=== PATIENT | male | born 1955 | race Caucasian/White ===

== ENCOUNTER 2019-08-08 08:29 | Outpatient (CLI) | payer OTHER ==
--- NOTE | 2019-08-08 10:22 | MRI ---
MR the lumbar spine with and without contrast INDICATION: 63-year-old male with lumbar stenosis with low back pain and leg weakness COMPARISON: MR of the lumbar spine without contrast from [facility] dated April. TECHNIQUE: Multiplanar multisequence MR images were obtained of lumbar spine with and without IV cont rast. Contrast: 20 cc of MultiHance. FINDINGS: Bone marrow: There is mild Modic endplate degenerative changes at L4-5 which are new. Distal spinal cord and conus: Normal. Conus is seen to terminate at the L1-L2 level. Visualized retroperitoneum and paraspinal soft tissues: There is a 6 mm, T2 hyperintense, nonenhancin g lesion seen within the left mid kidney likely reflective of a small left renal cyst. This was present on a comparison CT the abdomen from [facility] dated January 08, 2012 Vertebral levels: L5-S1: There is minimal interval posterior lateral spinal fusion at L5-S1. Susceptibility artifacts f rom bilateral pedicle screws and interconnecting rods are now present. The grade 1 anterolisthesis of L5 on S1 is stable. There is a stable [id number] broad-based pseudobulge. The loss of disc s pace height in addition to the broad-based pseudobulge induces mild neural foraminal narrowing, right greater than left, which is stable. L4-5: There is a broad-based disc osteophyte complex with facet hypertrophy inducing moderate central canal narrowing with moderate to severe right and severe left neural foraminal narrowing. This has progressed from the prior exam. L3-4: There is a broad-based disc bulge with a superimposed, cephalad extending left paracentral disc extrusion. The extrusion measures 0.9 x 1.6 cm induces mild ventrolateral effacement of the thecal sac. There is moderate subarticular left lateral recess narrowing due to the extrusion with potential for impingement of the traversing left lateral nerve roots within the thecal sac. The broad-based disc osteophyte complex with facet hypertrophy induces mild to moderate bilateral neural foraminal na rrowing which is relatively stable to the prior exam. L2-3: There is a mild broad-based disc bulge but no appreciable central canal or neural foraminal cayetano rowing. L1-L2: There is a mild broad-based disc bulge but no appreciable central canal or neural foraminal na rrowing T12-L1: No appreciable central canal or neuroforaminal narrowing. Postcontrast series: No abnormal enhancement demonstrated. IMPRESSION: 1. Interval posterior lateral L5-S1 interbody fusion. 2. Interval development of moderate central canal narrowing at L4-5 with moderate to severe right and severe left neural foraminal narrowing. 3. New cephalad extending, left paracentral disc extrusion causing moderate left lateral recess narro wing with potential for impingement of the traversing left lateral nerve roots within the thecal sac. 4. Stable mild to moderate bilateral neural foraminal narrowing at L3-4.
[2019-08-08] MEDS ORDERED: Magnevist 469MG/ML 20 ML VIAL ONE (11:11)
== END 2019-08-08 08:30 | disposition home or self-care (01) ==
LOC: BICMRI 08:29
PROVIDERS: ATTEND Neurological Surgery
DX: M48.061 Spinal stenosis, lumbar region without neurogenic claudication (principal); M51.26 Other intervertebral disc displacement, lumbar region; Z98.1 Arthrodesis status
CPT/HCPCS: 72158; 82565

== ENCOUNTER 2021-03-29 12:55 | Outpatient (CLI) | payer OTHER | END 2021-03-29 12:56 | disposition home or self-care (01) | LOC: BICMRI 12:55 | PROVIDERS: ATTEND Neurological Surgery | DX: M51.16 Intervertebral disc disorders with radiculopathy, lumbar region (principal); M47.26 Other spondylosis with radiculopathy, lumbar region; M54.50 Low back pain, unspecified | CPT/HCPCS: 72148 ==

== ENCOUNTER 2022-01-24 10:27 | Outpatient (CLI) | payer OTHER | END 2022-01-24 10:28 | disposition home or self-care (01) | LOC: LABBT 10:27 | PROVIDERS: ATTEND Neurological Surgery | DX: Z01.818 Encounter for other preprocedural examination (principal); M54.16 Radiculopathy, lumbar region; Z20.822 Contact with and (suspected) exposure to COVID-19 | CPT/HCPCS: 87811; 93005; 93010 ==

== ENCOUNTER 2022-01-29 06:03 | Day surgery (SDC) | payer OTHER ==
[2022-01-27 15:03] VITALS: BMI 26.4
[2022-01-29] MEDS ORDERED: Bupivacaine PF 0.5% 30 ML VIAL ONE (06:11)
[2022-01-29] MEDS ORDERED: Thrombin 5000 UNITS/5 ML VIAL ONE (06:11)
[2022-01-29] MEDS ORDERED: EPINEPHrine 1 MG/ML AMP ONE (06:11)
[2022-01-29] MEDS ORDERED: fentaNYL Citrate/PF 100 MCG/2 ML SYRINGE ONE (06:36)
[2022-01-29] MEDS ORDERED: Sodium Chloride 0.9% 100 ML ONE ×2 (06:39→09:47)
[2022-01-29] MEDS ORDERED: CEFAZOLIN 2 GM VIAL ONE ×2 (06:39→09:47)
[2022-01-29] MEDS ORDERED: Midazolam HCl 2 mg/2 ml Vial ONE (06:52)
[2022-01-29] MEDS ORDERED: Dexmedetomidine 200 MCG/2 ML VIAL ONE (06:59)
[2022-01-29] MEDS ORDERED: Ondansetron PF 4 MG/2 ML Vial ONE (07:03)
[2022-01-29] MEDS ORDERED: ePHEDrine 50 MG/ML VIAL ONE (07:03)
[2022-01-29] MEDS ORDERED: Dexamethasone 20 MG/5 ML VIAL ONE (07:03)
[2022-01-29] MEDS ORDERED: PROPOFOL 200 MG/20 ML VIAL ONE (07:03)
[2022-01-29] MEDS ORDERED: Lidocaine 1% PF 5 ML VIAL ONE (07:03)
[2022-01-29] MEDS ORDERED: SUGAMMADEX SODIUM 200 MG/2 ML VIAL ONE (07:56)
[2022-01-29] MEDS ORDERED: Fentanyl 100 MCG/2 ML VIAL ONE ×2 (08:25→08:40)
[2022-01-29] MEDS ORDERED: Tamsulosin HCl 0.4 MG CAP ONE (08:57)
[2022-01-29] MEDS ORDERED: Acetaminophen/Codeine 30-300mg Tablet ONE (09:47)
== END 2022-01-29 11:10 | disposition home or self-care (01) ==
LOC: SDC 06:03
PROVIDERS: ATTEND Neurological Surgery
PROC: 01NB0ZZ Release Lumbar Nerve, Open Approach (ICD-10-PCS; principal; 2022-01-29)
DX: M51.16 Intervertebral disc disorders with radiculopathy, lumbar region (principal); G89.4 Chronic pain syndrome; F17.200 Nicotine dependence, unspecified, uncomplicated; Z79.1 Long term (current) use of non-steroidal anti-inflammatories (NSAID); Z79.899 Other long term (current) drug therapy; Z88.0 Allergy status to penicillin; Z98.1 Arthrodesis status; Z88.5 Allergy status to narcotic agent; Z88.8 Allergy status to other drugs, medicaments and biological substances
CPT/HCPCS: 76000; J0171; J0690; J1100; J2250; J2405; J2704; J3010; J3490; S0020

== ENCOUNTER 2022-04-17 22:39 | Inpatient (IN) | payer BC ==
[2022-04-18 02:42] VITALS: BMI 28.5
[2022-04-18] MEDS ORDERED: Ondansetron ODT 4 MG TAB PO PRN (03:05)
[2022-04-18] MEDS ORDERED: Ondansetron PF 4 MG/2 ML Vial IVP PRN (03:05)
[2022-04-18] MEDS: HYDROcodone/Acetaminophen 5/325 mg Tablet PO PRN ×2 (03:53→17:25)
[2022-04-18] MEDS ORDERED: Vancomycin 1 GM in Premix Bag 1 BAG IVPB SCH (04:00)
[2022-04-18] MEDS: Nicotine 21 MG PATCH TD PRN (04:02)
[2022-04-18 06:16] LABS: #Basophils 0.1 thou/uL (0.0-0.2); #Eosinphils 0.3 thou/uL (0.0-0.7); #Monocytes 1.5 thou/uL (0.11-0.59); #Neutrophils 14.4 thou/uL (1.40-6.50); %Basophils 0.3 % (0.0-1.0); %Eosinophils 1.4 % (0.0-10.0); %Lymphocytes 10.8 % (21.0-51.0); %Monocytes 8.1 % (0.0-10.0); %Neutrophils 79.3 % (42.0-75.0); Hemoglobin 14.9 g/dL (14.0-18.0); Mean Corpuscular HGB CONC 32.3 g/dL (32.0-36.0); Mean Corpuscular Hemoglobin 32.6 pg (27.0-31.0); Mean Platelet Volume 9.1 fL (7.4-10.4); Platelet Count 158 thou/uL (130-400); RBC Distribution Width 12.5 % (11.5-14.5); Red Blood Cell (RBC) Count 4.59 mill/uL (4.70-6.10); White Blood Cell (WBC) Count 18.1 thou/uL (4.8-10.8)
[2022-04-18 06:53] LABS: Anion Gap 13 mmol/L (10-20); BUN (Urea Nitrogen) 16 mg/dL (8.4-25.7); Calc. Creatinine Clearance 112 mL/min (70-130); Calcium 8.8 mg/dL (7.8-10.44); Carbon Dioxide 21 mmol/L (23-31); Chloride 108 mmol/L (98-107); Estimated GFR 95; Glucose 114 mg/dL (80-115); Sodium 138 mmol/L (136-145)
[2022-04-18] MEDS: Gabapentin 300 MG CAP PO SCH ×2 (09:13→19:30)
[2022-04-18] MEDS: Atorvastatin Calcium 40 MG TAB PO SCH (09:13)
[2022-04-18] MEDS: Lisinopril 10 MG TAB PO SCH (09:13)
[2022-04-18] MEDS: Cefepime 2 GM in Sodium Chloride 0.9% 100 ML IVPB SCH ×2 (09:13→19:31)
[2022-04-18] MEDS: VANCOMYCIN 1.25 GM/250 ML BAG 1.25 GM in Premix Bag 1 BAG IVPB SCH ×2 (12:09→23:58)
[2022-04-18] MEDS: Acetaminophen 325 MG TAB PO PRN (19:29)
[2022-04-19] MEDS: Acetaminophen 325 MG TAB PO PRN ×3 (00:04→16:54)
[2022-04-19 06:53] LABS: #Eosinphils 0.5 thou/uL (0.0-0.7); #Lymphocytes 2.1 thou/uL (1.20-3.40); #Monocytes 1.4 thou/uL (0.11-0.59); #Neutrophils 12.8 thou/uL (1.40-6.50); %Basophils 0.2 % (0.0-1.0); %Eosinophils 2.9 % (0.0-10.0); %Lymphocytes 12.2 % (21.0-51.0); %Monocytes 8.4 % (0.0-10.0); %Neutrophils 76.3 % (42.0-75.0); Hemoglobin 15.3 g/dL (14.0-18.0); Mean Corpuscular HGB CONC 32.7 g/dL (32.0-36.0); Mean Corpuscular Hemoglobin 32.5 pg (27.0-31.0); Mean Corpuscular Volume 99.5 fl (78.0-98.0); Mean Platelet Volume 8.2 fL (7.4-10.4); Platelet Count 188 thou/uL (130-400); RBC Distribution Width 12.1 % (11.5-14.5); Red Blood Cell (RBC) Count 4.69 mill/uL (4.70-6.10); White Blood Cell (WBC) Count 16.8 thou/uL (4.8-10.8)
[2022-04-19 07:12] LABS: Anion Gap 12 mmol/L (10-20); BUN (Urea Nitrogen) 13 mg/dL (8.4-25.7); Calc. Creatinine Clearance 124 mL/min (70-130); Calcium 9.3 mg/dL (7.8-10.44); Carbon Dioxide 27 mmol/L (23-31); Chloride 103 mmol/L (98-107); Estimated GFR 98; Glucose 97 mg/dL (80-115); Potassium 3.8 mmol/L (3.5-5.1); Sodium 138 mmol/L (136-145)
[2022-04-19] MEDS ORDERED: FLU VACC QS2022-23(6MOS UP)/PF 60 MCG/0.5 ML SYRINGE IM ONE (09:00)
[2022-04-19] MEDS: Gabapentin 300 MG CAP PO SCH ×2 (09:06→20:44)
[2022-04-19] MEDS: Atorvastatin Calcium 40 MG TAB PO SCH (09:06)
[2022-04-19] MEDS: Cefepime 2 GM in Sodium Chloride 0.9% 100 ML IVPB SCH ×2 (09:07→20:45)
[2022-04-19] MEDS: Lisinopril 10 MG TAB PO SCH (09:07)
[2022-04-19 10:10] LABS: Vancomycin, Trough 13.8 ug/mL
[2022-04-19] MEDS: VANCOMYCIN 1.25 GM/250 ML BAG 1.25 GM in Premix Bag 1 BAG IVPB SCH (11:09)
[2022-04-19] MEDS: Vancomycin 1.5 GRAM/300 ML BAG 1.5 GM in Premix Bag 1 BAG IVPB SCH ×2 (11:55→23:12)
[2022-04-19] MEDS: Nicotine 21 MG PATCH TD PRN (20:49)
[2022-04-20 07:29] LABS: #Eosinphils 0.3 thou/uL (0.0-0.7); #Lymphocytes 1.8 thou/uL (1.20-3.40); #Monocytes 1.5 thou/uL (0.11-0.59); #Neutrophils 12.2 thou/uL (1.40-6.50); %Basophils 0.3 % (0.0-1.0); %Lymphocytes 11.3 % (21.0-51.0); %Monocytes 9.3 % (0.0-10.0); %Neutrophils 77.1 % (42.0-75.0); Hemoglobin 15.7 g/dL (14.0-18.0); Mean Corpuscular HGB CONC 32.4 g/dL (32.0-36.0); Mean Corpuscular Hemoglobin 31.8 pg (27.0-31.0); Mean Corpuscular Volume 98.2 fl (78.0-98.0); Mean Platelet Volume 8.2 fL (7.4-10.4); Platelet Count 224 thou/uL (130-400); RBC Distribution Width 12.1 % (11.5-14.5); Red Blood Cell (RBC) Count 4.93 mill/uL (4.70-6.10); White Blood Cell (WBC) Count 15.8 thou/uL (4.8-10.8)
[2022-04-20 07:43] LABS: Anion Gap 13 mmol/L (10-20); BUN (Urea Nitrogen) 13 mg/dL (8.4-25.7); Calc. Creatinine Clearance 106 mL/min (70-130); Calcium 9.6 mg/dL (7.8-10.44); Carbon Dioxide 27 mmol/L (23-31); Chloride 100 mmol/L (98-107); Estimated GFR 89; Glucose 96 mg/dL (80-115); Potassium 3.9 mmol/L (3.5-5.1); Sodium 136 mmol/L (136-145)
[2022-04-20] MEDS: Cefepime 2 GM in Sodium Chloride 0.9% 100 ML IVPB SCH ×2 (08:14→20:22)
[2022-04-20] MEDS: Gabapentin 300 MG CAP PO SCH ×2 (08:14→20:22)
[2022-04-20] MEDS: Lisinopril 10 MG TAB PO SCH (08:15)
[2022-04-20] MEDS: Atorvastatin Calcium 40 MG TAB PO SCH (08:15)
[2022-04-20] MEDS: Vancomycin 1.5 GRAM/300 ML BAG 1.5 GM in Premix Bag 1 BAG IVPB SCH ×2 (12:12→23:07)
[2022-04-20] MEDS: Acetaminophen 325 MG TAB PO PRN (17:10)
[2022-04-20] MEDS: Nicotine 21 MG PATCH TD PRN (20:23)
[2022-04-20 22:22] LABS: Vancomycin, Trough 13.2 ug/mL
[2022-04-21] MEDS: HYDROcodone/Acetaminophen 5/325 mg Tablet PO PRN ×3 (04:09→20:36)
[2022-04-21 06:48] LABS: #Eosinphils 0.3 thou/uL (0.0-0.7); #Lymphocytes 1.7 thou/uL (1.20-3.40); #Monocytes 1.3 thou/uL (0.11-0.59); #Neutrophils 11.7 thou/uL (1.40-6.50); %Basophils 0.1 % (0.0-1.0); %Lymphocytes 11.5 % (21.0-51.0); %Monocytes 8.6 % (0.0-10.0); %Neutrophils 77.7 % (42.0-75.0); Hemoglobin 15.2 g/dL (14.0-18.0); Mean Corpuscular HGB CONC 32.9 g/dL (32.0-36.0); Mean Corpuscular Hemoglobin 32.2 pg (27.0-31.0); Mean Corpuscular Volume 97.9 fl (78.0-98.0); Mean Platelet Volume 8.1 fL (7.4-10.4); Platelet Count 239 thou/uL (130-400); Red Blood Cell (RBC) Count 4.74 mill/uL (4.70-6.10); White Blood Cell (WBC) Count 15.1 thou/uL (4.8-10.8)
[2022-04-21 07:04] LABS: Anion Gap 12 mmol/L (10-20); BUN (Urea Nitrogen) 15 mg/dL (8.4-25.7); Calc. Creatinine Clearance 120 mL/min (70-130); Carbon Dioxide 25 mmol/L (23-31); Chloride 102 mmol/L (98-107); Estimated GFR 97; Glucose 133 mg/dL (80-115); Potassium 3.6 mmol/L (3.5-5.1); Sodium 135 mmol/L (136-145)
[2022-04-21] MEDS: Atorvastatin Calcium 40 MG TAB PO SCH (08:33)
[2022-04-21] MEDS: Gabapentin 300 MG CAP PO SCH ×2 (08:34→20:35)
[2022-04-21] MEDS: Lisinopril 10 MG TAB PO SCH (08:35)
[2022-04-21] MEDS: Cefepime 2 GM in Sodium Chloride 0.9% 100 ML IVPB SCH (08:35)
[2022-04-21] MEDS ORDERED: Iopamidol-370 76% 500 ML 1 ML ONE (10:51)
[2022-04-21] MEDS: Vancomycin 1.5 GRAM/300 ML BAG 1.5 GM in Premix Bag 1 BAG IVPB SCH (11:32)
[2022-04-21] MEDS ORDERED: Cefpodoxime 200 MG TAB PO SCH (12:59)
[2022-04-21] MEDS: metroNIDAZOLE 500 MG in Premix Bag 1 BAG IVPB SCH ×2 (14:44→20:37)
[2022-04-21] MEDS: cefTRIAXone\\ROCEPHIN 1 GM in Sodium Chloride 0.9% 100 ML IVPB SCH (14:44)
[2022-04-21] MEDS: Nicotine 21 MG PATCH TD PRN (20:37)
[2022-04-22] MEDS: metroNIDAZOLE 500 MG in Premix Bag 1 BAG IVPB SCH ×3 (05:42→21:34)
[2022-04-22 07:40] LABS: #Eosinphils 0.3 thou/uL (0.0-0.7); #Lymphocytes 1.9 thou/uL (1.20-3.40); #Monocytes 0.9 thou/uL (0.11-0.59); #Neutrophils 9.2 thou/uL (1.40-6.50); %Basophils 0.4 % (0.0-1.0); %Eosinophils 2.3 % (0.0-10.0); %Lymphocytes 15.5 % (21.0-51.0); %Monocytes 7.5 % (0.0-10.0); %Neutrophils 74.4 % (42.0-75.0); Hemoglobin 15.9 g/dL (14.0-18.0); Mean Corpuscular HGB CONC 32.9 g/dL (32.0-36.0); Mean Corpuscular Hemoglobin 32.6 pg (27.0-31.0); Mean Platelet Volume 7.5 fL (7.4-10.4); Platelet Count 285 thou/uL (130-400); Red Blood Cell (RBC) Count 4.87 mill/uL (4.70-6.10); White Blood Cell (WBC) Count 12.4 thou/uL (4.8-10.8)
[2022-04-22] MEDS: Atorvastatin Calcium 40 MG TAB PO SCH (08:03)
[2022-04-22] MEDS: Gabapentin 300 MG CAP PO SCH ×2 (08:03→21:33)
[2022-04-22] MEDS: Lisinopril 10 MG TAB PO SCH (08:03)
[2022-04-22 08:37] LABS: Anion Gap 15 mmol/L (10-20); BUN (Urea Nitrogen) 15 mg/dL (8.4-25.7); Calc. Creatinine Clearance 111 mL/min (70-130); Calcium 9.5 mg/dL (7.8-10.44); Carbon Dioxide 26 mmol/L (23-31); Cardiac Risk 3.4 (Less than 4.5); Chloride 101 mmol/L (98-107); Cholesterol 100 mg/dl (< 200 Desired); Estimated GFR 94; Glucose 162 mg/dL (80-115); HDL Cholesterol 29 mg/dL (>60 Neg Risk); LDL Cholesterol, Calculated 51 mg/dL; Potassium 4.5 mmol/L (3.5-5.1); Sodium 137 mmol/L (136-145); Triglycerides 98 mg/dL (Less than 150)
[2022-04-22] MEDS ORDERED: Aspirin 81 mg Enteric Coated Tablet PO SCH (09:30)
[2022-04-22 11:05] LABS: Vancomycin, Trough 5.9 ug/mL
[2022-04-22] MEDS: cefTRIAXone\\ROCEPHIN 1 GM in Sodium Chloride 0.9% 100 ML IVPB SCH (12:42)
[2022-04-22] MEDS: HYDROcodone/Acetaminophen 5/325 mg Tablet PO PRN (15:21)
[2022-04-22] MEDS: Rosuvastatin 20 MG TAB PO SCH (21:32)
[2022-04-23] MEDS: metroNIDAZOLE 500 MG in Premix Bag 1 BAG IVPB SCH ×3 (05:46→22:51)
[2022-04-23] MEDS: Aspirin 81 mg Enteric Coated Tablet PO SCH (09:53)
[2022-04-23] MEDS: Lisinopril 10 MG TAB PO SCH (09:54)
[2022-04-23] MEDS: Gabapentin 300 MG CAP PO SCH ×2 (09:54→19:52)
[2022-04-23] MEDS ORDERED: Iopamidol 370 76% 100 ML VIAL ONE (09:59)
[2022-04-23] MEDS ORDERED: Heparin 10,000 UNITS/ 10 ML VIAL ONE (10:57)
[2022-04-23] MEDS ORDERED: Adenosine 6 MG/2 ML VIAL ONE (10:57)
[2022-04-23] MEDS ORDERED: Lidocaine 1% (PF) 30 ML VIAL ONE (10:57)
[2022-04-23] MEDS ORDERED: Midazolam HCl 2 mg/2 ml Vial ONE (12:20)
[2022-04-23] MEDS ORDERED: Fentanyl 100 MCG/2 ML VIAL ONE (12:20)
[2022-04-23] MEDS ORDERED: cefTRIAXone\\ROCEPHIN 1 GM VIAL ONE (13:56)
[2022-04-23] MEDS ORDERED: Sodium Chloride 0.9% 100 ML ONE (13:56)
[2022-04-23] MEDS ORDERED: Fentanyl 100 MCG/2 ML VIAL SLOW IVP PRN ×2 (13:56)
[2022-04-23] MEDS: cefTRIAXone\\ROCEPHIN 1 GM in Sodium Chloride 0.9% 100 ML IVPB SCH (13:58)
[2022-04-23] MEDS ORDERED: metroNIDAZOLE 500 MG/100 ML BAG ONE (14:32)
[2022-04-23] MEDS: Clopidogrel Bisulfate 75 MG TAB PO SCH (17:20)
[2022-04-23] MEDS: HYDROcodone/Acetaminophen 5/325 mg Tablet PO PRN ×2 (18:04→22:50)
[2022-04-23] MEDS: Rosuvastatin 20 MG TAB PO SCH (19:51)
[2022-04-23] MEDS: Nicotine 21 MG PATCH TD PRN (23:12)
[2022-04-24] MEDS: metroNIDAZOLE 500 MG in Premix Bag 1 BAG IVPB SCH ×3 (05:30→21:53)
[2022-04-24] MEDS ORDERED: Bupivacaine/Epinephrine 0.25% 30 ML VIAL ONE (06:28)
[2022-04-24] MEDS ORDERED: Bacitracin Zinc Ointment 30 gm TUBE ONE (06:28)
[2022-04-24] MEDS ORDERED: fentaNYL PF 100 MCG/2 ML SYRINGE ONE (08:15)
[2022-04-24] MEDS ORDERED: Midazolam HCl 2 mg/2 ml Vial ONE (08:15)
[2022-04-24] MEDS ORDERED: ePHEDrine 50 MG/ML VIAL ONE (08:17)
[2022-04-24] MEDS ORDERED: Ondansetron PF 4 MG/2 ML Vial ONE (08:17)
[2022-04-24] MEDS ORDERED: PROPOFOL 200 MG/20 ML VIAL ONE (08:17)
[2022-04-24] MEDS ORDERED: Metoclopramide HCl 10 MG/2 ML VIAL ONE (08:17)
[2022-04-24] MEDS ORDERED: PHENYLEPHRINE-NS 100 MCG/ML 10 ML SYRINGE ONE (08:17)
[2022-04-24] MEDS: Gabapentin 300 MG CAP PO SCH ×2 (08:35→21:52)
[2022-04-24] MEDS: Aspirin 81 mg Enteric Coated Tablet PO SCH (08:35)
[2022-04-24] MEDS: Lisinopril 10 MG TAB PO SCH (08:35)
[2022-04-24] MEDS ORDERED: Promethazine HCl 25 MG/ML VIAL IVPB PRN (09:31)
[2022-04-24] MEDS ORDERED: Promethazine HCl 25 MG/ML VIAL IM PRN (09:31)
[2022-04-24] MEDS ORDERED: Ondansetron HCl/PF 4 MG/2 ML Vial IVP PRN (09:31)
[2022-04-24] MEDS: cefTRIAXone\\ROCEPHIN 1 GM in Sodium Chloride 0.9% 100 ML IVPB SCH (12:47)
[2022-04-24] MEDS: HYDROcodone/Acetaminophen 5/325 mg Tablet PO PRN ×2 (17:55→22:00)
[2022-04-24] MEDS: Clopidogrel Bisulfate 75 MG TAB PO SCH (17:56)
[2022-04-24] MEDS: Docusate 100 MG CAP PO SCH (21:51)
[2022-04-24] MEDS: Rosuvastatin 20 MG TAB PO SCH (21:52)
[2022-04-25] MEDS: metroNIDAZOLE 500 MG in Premix Bag 1 BAG IVPB SCH (06:15)
[2022-04-25] MEDS: Saccharomyces boulardii 250 MG CAP PO SCH (08:25)
[2022-04-25] MEDS: Docusate 100 MG CAP PO SCH ×2 (08:25→21:55)
[2022-04-25] MEDS: Lisinopril 10 MG TAB PO SCH (08:26)
[2022-04-25] MEDS: Enoxaparin Sodium 40 MG/0.4 ML SYRINGE SC SCH (08:26)
[2022-04-25] MEDS: Aspirin 81 mg Enteric Coated Tablet PO SCH (08:26)
[2022-04-25] MEDS: Gabapentin 300 MG CAP PO SCH ×2 (08:26→21:54)
[2022-04-25] MEDS: Polyethylene Glycol 3350 17 GM Packet PO SCH (08:26)
[2022-04-25] MEDS: HYDROcodone/Acetaminophen 5/325 mg Tablet PO PRN ×3 (12:41→23:50)
[2022-04-25] MEDS: Nicotine 21 MG PATCH TD PRN (12:45)
[2022-04-25] MEDS: Clopidogrel Bisulfate 75 MG TAB PO SCH (18:29)
[2022-04-25] MEDS: Rosuvastatin 20 MG TAB PO SCH (21:55)
[2022-04-26] MEDS: Docusate 100 MG CAP PO SCH ×2 (08:23→20:27)
[2022-04-26] MEDS: Polyethylene Glycol 3350 17 GM Packet PO SCH (08:23)
[2022-04-26] MEDS: Enoxaparin Sodium 40 MG/0.4 ML SYRINGE SC SCH (08:24)
[2022-04-26] MEDS: Lisinopril 10 MG TAB PO SCH (08:24)
[2022-04-26] MEDS: Saccharomyces boulardii 250 MG CAP PO SCH (08:24)
[2022-04-26] MEDS: Aspirin 81 mg Enteric Coated Tablet PO SCH (08:24)
[2022-04-26] MEDS: Gabapentin 300 MG CAP PO SCH ×2 (08:24→20:27)
[2022-04-26] MEDS: HYDROcodone/Acetaminophen 5/325 mg Tablet PO PRN ×3 (08:29→21:24)
[2022-04-26] MEDS: Clopidogrel Bisulfate 75 MG TAB PO SCH (18:48)
[2022-04-26] MEDS: Rosuvastatin 20 MG TAB PO SCH (20:27)
[2022-04-27] MEDS: HYDROcodone/Acetaminophen 5/325 mg Tablet PO PRN ×3 (06:12→20:59)
[2022-04-27] MEDS: Docusate 100 MG CAP PO SCH ×2 (08:34→21:01)
[2022-04-27] MEDS: Aspirin 81 mg Enteric Coated Tablet PO SCH (08:34)
[2022-04-27] MEDS: Lisinopril 10 MG TAB PO SCH (08:35)
[2022-04-27] MEDS: Gabapentin 300 MG CAP PO SCH ×2 (08:35→20:58)
[2022-04-27] MEDS: Enoxaparin Sodium 40 MG/0.4 ML SYRINGE SC SCH (08:36)
[2022-04-27] MEDS: Polyethylene Glycol 3350 17 GM Packet PO SCH (08:36)
[2022-04-27] MEDS: Saccharomyces boulardii 250 MG CAP PO SCH (08:37)
[2022-04-27] MEDS: Nicotine 21 MG PATCH TD PRN (08:44)
[2022-04-27] MEDS: Clopidogrel Bisulfate 75 MG TAB PO SCH (18:13)
[2022-04-27] MEDS: Rosuvastatin 20 MG TAB PO SCH (20:58)
[2022-04-28] MEDS: HYDROcodone/Acetaminophen 5/325 mg Tablet PO PRN ×2 (05:11→18:21)
[2022-04-28 07:03] LABS: ALT (SGPT) 57 U/L (8-55); AST (SGOT) 37 U/L (5-34); Albumin 3.9 g/dL (3.4-4.8); Alkaline Phosphatase 99 U/L (40-110); Anion Gap 11 mmol/L (10-20); BUN (Urea Nitrogen) 16 mg/dL (8.4-25.7); Bilirubin, Total 0.5 mg/dL (0.2-1.2); Calc. Creatinine Clearance 108 mL/min (70-130); Calcium 9.3 mg/dL (7.8-10.44); Carbon Dioxide 28 mmol/L (23-31); Chloride 102 mmol/L (98-107); Estimated GFR 92; Globulin 3.2 g/dL (2.4-3.5); Glucose 95 mg/dL (80-115); Potassium 4.3 mmol/L (3.5-5.1); Protein, Total 7.1 g/dL (5.8-8.1); Sodium 137 mmol/L (136-145)
[2022-04-28] MEDS: Saccharomyces boulardii 250 MG CAP PO SCH (08:47)
[2022-04-28] MEDS: Lisinopril 10 MG TAB PO SCH (08:47)
[2022-04-28] MEDS: Gabapentin 300 MG CAP PO SCH ×2 (08:47→20:18)
[2022-04-28] MEDS: Aspirin 81 mg Enteric Coated Tablet PO SCH (08:47)
[2022-04-28] MEDS: Enoxaparin Sodium 40 MG/0.4 ML SYRINGE SC SCH (08:48)
[2022-04-28] MEDS: Docusate 100 MG CAP PO SCH ×2 (08:48→20:18)
[2022-04-28] MEDS: Polyethylene Glycol 3350 17 GM Packet PO SCH (08:49)
[2022-04-28] MEDS: Nicotine 21 MG PATCH TD PRN (16:51)
[2022-04-28] MEDS: Clopidogrel Bisulfate 75 MG TAB PO SCH (18:16)
[2022-04-28] MEDS: Rosuvastatin 20 MG TAB PO SCH (20:18)
[2022-04-29 07:55] VITALS: BP 127/75; TEMP 98.3
[2022-04-29] MEDS: Enoxaparin Sodium 40 MG/0.4 ML SYRINGE SC SCH (08:09)
[2022-04-29] MEDS: Docusate 100 MG CAP PO SCH (08:09)
[2022-04-29] MEDS: Saccharomyces boulardii 250 MG CAP PO SCH (08:09)
[2022-04-29] MEDS: Aspirin 81 mg Enteric Coated Tablet PO SCH (08:09)
[2022-04-29] MEDS: Gabapentin 300 MG CAP PO SCH (08:09)
[2022-04-29] MEDS: Lisinopril 10 MG TAB PO SCH (08:09)
[2022-04-29] MEDS: Polyethylene Glycol 3350 17 GM Packet PO SCH (08:10)
[2022-04-29] MEDS: HYDROcodone/Acetaminophen 5/325 mg Tablet PO PRN ×2 (08:14→14:08)
== END 2022-04-29 16:25 | disposition home health service (06) | DRG 854 ==
LOC: T4-A 22:39
PROVIDERS: ADMIT Internal Medicine; ATTEND Internal Medicine
PROC: 3E03329 Introduction of Other Anti-infective into Peripheral Vein, Percutaneous Approach (ICD-10-PCS; 2022-04-18)
PROC: 0JBQ0ZZ Excision of Right Foot Subcutaneous Tissue and Fascia, Open Approach (ICD-10-PCS; 2022-04-18)
PROC: 047K3EZ Dilation of Right Femoral Artery with Two Intraluminal Devices, Percutaneous Approach (ICD-10-PCS; 2022-04-23)
PROC: 047M3ZZ Dilation of Right Popliteal Artery, Percutaneous Approach (ICD-10-PCS; 2022-04-23)
PROC: B4101ZZ Fluoroscopy of Abdominal Aorta using Low Osmolar Contrast (ICD-10-PCS; 2022-04-23)
PROC: B41F1ZZ Fluoroscopy of Right Lower Extremity Arteries using Low Osmolar Contrast (ICD-10-PCS; 2022-04-23)
PROC: 0Y6X0Z3 Detachment at Right 5th Toe, Low, Open Approach (ICD-10-PCS; principal; 2022-04-24)
DX: A41.9 Sepsis, unspecified organism (principal); L02.611 Cutaneous abscess of right foot; L03.115 Cellulitis of right lower limb; Z20.822 Contact with and (suspected) exposure to COVID-19; E78.5 Hyperlipidemia, unspecified; I10 Essential (primary) hypertension; I70.235 Atherosclerosis of native arteries of right leg with ulceration of other part of foot; L97.519 Non-pressure chronic ulcer of other part of right foot with unspecified severity; F17.210 Nicotine dependence, cigarettes, uncomplicated; G62.9 Polyneuropathy, unspecified; M65.9 Synovitis and tenosynovitis, unspecified; G89.29 Other chronic pain; Z28.21 Immunization not carried out because of patient refusal; Z88.6 Allergy status to analgesic agent; Z88.4 Allergy status to anesthetic agent; Z88.0 Allergy status to penicillin; Z79.899 Other long term (current) drug therapy; Z79.1 Long term (current) use of non-steroidal anti-inflammatories (NSAID); Z95.828 Presence of other vascular implants and grafts; Z98.1 Arthrodesis status; Z82.49 Family history of ischemic heart disease and other diseases of the circulatory system; Z83.49 Family history of other endocrine, nutritional and metabolic diseases; Z80.52 Family history of malignant neoplasm of bladder; Z80.1 Family history of malignant neoplasm of trachea, bronchus and lung; Z71.6 Tobacco abuse counseling
CPT/HCPCS: 36415; 36416; 37226; 75635; 80048; 80053; 80061; 80202; 85025; 85347; 87070; 87077; 87186; 87205; 87811; 88305; 88311; 93005; 93010; 93923; 97139; 99152; 99153; C1725; C1760; C1769; C1887; C1894; J0153; J0692; J0696; J1644; J1650; J1956; J2001; J2250; J2405; J2704; J2765; J3010; J3370; J3490; Q9967; U0003; U0005

== ENCOUNTER 2022-07-01 19:53 | Inpatient (IN) | payer BC ==
[2022-07-02] MEDS ORDERED: Acetaminophen 325 MG TAB PO PRN ×2 (16:15)
[2022-07-02] MEDS: Cefepime 2 GM in Sodium Chloride 0.9% 100 ML IVPB SCH (16:56)
[2022-07-02 18:14] LABS: #Eosinphils 0.3 thou/uL (0.0-0.7); #Lymphocytes 2.4 thou/uL (1.20-3.40); #Monocytes 1.2 thou/uL (0.11-0.59); %Basophils 0.3 % (0.0-1.0); %Eosinophils 2.1 % (0.0-10.0); %Lymphocytes 16.3 % (21.0-51.0); %Monocytes 8.1 % (0.0-10.0); %Neutrophils 73.3 % (42.0-75.0); Hemoglobin 14.8 g/dL (14.0-18.0); Mean Corpuscular Hemoglobin 32.2 pg (27.0-31.0); Mean Corpuscular Volume 97.5 fl (78.0-98.0); Platelet Count 326 10x3/uL (130-400)
[2022-07-02 18:37] LABS: ALT (SGPT) 26 U/L (8-55); AST (SGOT) 14 U/L (5-34); Albumin 3.6 g/dL (3.4-4.8); Alkaline Phosphatase 109 U/L (40-110); Anion Gap 12 mmol/L (10-20); BUN (Urea Nitrogen) 12 mg/dL (8.4-25.7); Bilirubin, Total 0.3 mg/dL (0.2-1.2); Calc. Creatinine Clearance 105 mL/min (70-130); Calcium 9.2 mg/dL (7.8-10.44); Carbon Dioxide 28 mmol/L (23-31); Chloride 103 mmol/L (98-107); Estimated GFR 97; Globulin 3.3 g/dL (2.4-3.5); Glucose 96 mg/dL (80-115); Potassium 3.9 mmol/L (3.5-5.1); Protein, Total 6.9 g/dL (5.8-8.1); Sodium 139 mmol/L (136-145)
[2022-07-02] MEDS: Atorvastatin Calcium 40 MG TAB PO SCH (20:28)
[2022-07-03] MEDS: Cefepime 2 GM in Sodium Chloride 0.9% 100 ML IVPB SCH ×2 (05:01→16:06)
[2022-07-03] MEDS: VANCOMYCIN 1.25 GM/250 ML BAG 1.25 GM in Premix Bag 1 BAG IVPB SCH ×2 (08:40→20:37)
[2022-07-03] MEDS: Lisinopril 10 MG TAB PO SCH (08:42)
[2022-07-03] MEDS: Aspirin 81 mg Enteric Coated Tablet PO SCH (11:38)
[2022-07-03] MEDS: Clopidogrel Bisulfate 75 MG TAB PO SCH (11:38)
[2022-07-03] MEDS ORDERED: metroNIDAZOLE 500 MG in Premix Bag 1 BAG IVPB SCH (12:00)
[2022-07-03] MEDS: HYDROcodone/Acetaminophen 5/325 mg Tablet PO PRN ×2 (12:31→20:41)
[2022-07-03] MEDS ORDERED: Gabapentin 300 MG CAP PO SCH ×2 (16:00→21:00)
[2022-07-03] MEDS: Nicotine 14 MG PATCH TD SCH (16:07)
[2022-07-03] MEDS: Heparin 5,000 UNITS/ML VIAL SC SCH ×2 (16:07→20:43)
[2022-07-03] MEDS: Gabapentin 300 MG CAP PO SCH (20:38)
[2022-07-03] MEDS: Varenicline Tartrate 0.5 MG TAB PO SCH (20:38)
[2022-07-03] MEDS: Atorvastatin Calcium 40 MG TAB PO SCH (20:40)
[2022-07-03] MEDS: Famotidine 20 MG TAB PO SCH (20:40)
[2022-07-03] MEDS: Docusate 100 MG CAP PO SCH (20:43)
[2022-07-04] MEDS: Cefepime 2 GM in Sodium Chloride 0.9% 100 ML IVPB SCH ×2 (04:49→18:04)
[2022-07-04 06:32] LABS: #Eosinphils 0.3 thou/uL (0.0-0.7); #Lymphocytes 2.1 thou/uL (1.20-3.40); #Monocytes 0.9 thou/uL (0.11-0.59); #Neutrophils 10.7 thou/uL (1.40-6.50); %Basophils 0.2 % (0.0-1.0); %Eosinophils 2.2 % (0.0-10.0); %Lymphocytes 14.7 % (21.0-51.0); %Monocytes 6.4 % (0.0-10.0); %Neutrophils 76.5 % (42.0-75.0); Hemoglobin 16.1 g/dL (14.0-18.0); Mean Corpuscular HGB CONC 33.9 g/dL (32.0-36.0); Mean Corpuscular Hemoglobin 32.6 pg (27.0-31.0); Mean Corpuscular Volume 96.1 fl (78.0-98.0); Mean Platelet Volume 7.1 fL (7.4-10.4); Platelet Count 373 10x3/uL (130-400); Red Blood Cell (RBC) Count 4.96 mill/uL (4.70-6.10); White Blood Cell (WBC) Count 13.9 10x3/uL (4.8-10.8)
[2022-07-04 06:50] LABS: Phosphorus 3.4 mg/dL (2.3-4.7)
[2022-07-04 06:54] LABS: ALT (SGPT) 28 U/L (8-55); AST (SGOT) 18 U/L (5-34); Albumin 3.7 g/dL (3.4-4.8); Alkaline Phosphatase 106 U/L (40-110); Anion Gap 13 mmol/L (10-20); BUN (Urea Nitrogen) 12 mg/dL (8.4-25.7); Bilirubin, Total 0.7 mg/dL (0.2-1.2); Calc. Creatinine Clearance 103 mL/min (70-130); Calcium 9.3 mg/dL (7.8-10.44); Carbon Dioxide 23 mmol/L (23-31); Chloride 102 mmol/L (98-107); Estimated GFR 97; Globulin 3.6 g/dL (2.4-3.5); Glucose 101 mg/dL (80-115); Magnesium 2.2 mg/dL (1.6-2.6); Potassium 4.2 mmol/L (3.5-5.1); Protein, Total 7.3 g/dL (5.8-8.1); Sodium 134 mmol/L (136-145)
[2022-07-04] MEDS ORDERED: Ondansetron HCl/PF 4 MG/2 ML Vial IVP PRN (07:47)
[2022-07-04] MEDS ORDERED: Bacitracin Zinc Ointment 30 gm TUBE ONE (07:47)
[2022-07-04] MEDS ORDERED: Promethazine HCl 25 MG/ML VIAL IM PRN (07:47)
[2022-07-04] MEDS ORDERED: Bupivacaine/Epinephrine 0.25% 30 ML VIAL ONE (07:47)
[2022-07-04] MEDS ORDERED: Fentanyl 250 MCG/5 ML VIAL ONE (07:58)
[2022-07-04] MEDS ORDERED: Lidocaine 1% PF 5 ML VIAL ONE (08:15)
[2022-07-04] MEDS ORDERED: PROPOFOL 200 MG/20 ML VIAL ONE (08:15)
[2022-07-04] MEDS ORDERED: Dexamethasone 20 MG/5 ML VIAL ONE (08:15)
[2022-07-04] MEDS ORDERED: Ondansetron PF 4 MG/2 ML Vial ONE (08:15)
[2022-07-04] MEDS ORDERED: PHENYLEPHRINE-NS 100 MCG/ML 10 ML SYRINGE ONE (08:15)
[2022-07-04] MEDS ORDERED: ePHEDrine 50 MG/ML VIAL ONE (08:15)
[2022-07-04] MEDS ORDERED: Lisinopril 10 MG TAB PO SCH (09:00)
[2022-07-04] MEDS ORDERED: Fentanyl 100 MCG/2 ML VIAL ONE (09:56)
[2022-07-04] MEDS: Heparin 5,000 UNITS/ML VIAL SC SCH ×2 (10:36→15:02)
[2022-07-04] MEDS: Gabapentin 300 MG CAP PO SCH ×3 (10:36→20:22)
[2022-07-04] MEDS: VANCOMYCIN 1.25 GM/250 ML BAG 1.25 GM in Premix Bag 1 BAG IVPB SCH ×2 (10:36→20:27)
[2022-07-04] MEDS: Famotidine 20 MG TAB PO SCH ×2 (10:37→20:22)
[2022-07-04] MEDS: Docusate 100 MG CAP PO SCH ×2 (10:37→20:22)
[2022-07-04] MEDS: Varenicline Tartrate 0.5 MG TAB PO SCH ×2 (10:37→20:22)
[2022-07-04] MEDS: Lactated Ringer's 1,000 ML IV SCH ×2 (10:38→20:27)
[2022-07-04] MEDS: HYDROcodone/Acetaminophen 5/325 mg Tablet PO PRN ×3 (10:42→22:32)
[2022-07-04] MEDS ORDERED: Iopamidol 370 76% 50 ML VIAL FS ONE (11:07)
[2022-07-04] MEDS: Lisinopril 10 MG TAB PO SCH (11:39)
[2022-07-04] MEDS: Clopidogrel Bisulfate 75 MG TAB PO SCH (11:39)
[2022-07-04] MEDS: Aspirin 81 mg Enteric Coated Tablet PO SCH (11:39)
[2022-07-04] MEDS ORDERED: Lidocaine 1% (PF) 30 ML VIAL ONE (13:19)
[2022-07-04] MEDS ORDERED: Midazolam HCl 2 mg/2 ml Vial ONE ×2 (13:47→14:31)
[2022-07-04] MEDS ORDERED: FENTANYL 50 MCG/ML 1 ML VIAL ONE (14:31)
[2022-07-04] MEDS ORDERED: Heparin 10,000 UNITS/ 10 ML VIAL ONE (15:01)
[2022-07-04] MEDS ORDERED: Protamine Sulfate 50 MG/5 ML VIAL ONE (15:39)
[2022-07-04] MEDS: Nicotine 14 MG PATCH TD SCH (16:44)
[2022-07-04 19:41] LABS: Vancomycin, Trough 10.7 ug/mL
[2022-07-04] MEDS: Atorvastatin Calcium 40 MG TAB PO SCH (20:22)
[2022-07-05] MEDS: Cefepime 2 GM in Sodium Chloride 0.9% 100 ML IVPB SCH ×2 (04:18→16:29)
[2022-07-05] MEDS: HYDROcodone/Acetaminophen 5/325 mg Tablet PO PRN ×5 (05:43→22:45)
[2022-07-05 06:35] LABS: #Basophils 0.1 thou/uL (0.0-0.2); #Eosinphils 0.3 thou/uL (0.0-0.7); #Lymphocytes 2.1 thou/uL (1.20-3.40); #Monocytes 1.1 thou/uL (0.11-0.59); #Neutrophils 12.7 thou/uL (1.40-6.50); %Basophils 0.3 % (0.0-1.0); %Lymphocytes 12.9 % (21.0-51.0); %Monocytes 6.4 % (0.0-10.0); %Neutrophils 78.4 % (42.0-75.0); Hemoglobin 14.7 g/dL (14.0-18.0); Mean Corpuscular HGB CONC 33.1 g/dL (32.0-36.0); Mean Corpuscular Hemoglobin 31.8 pg (27.0-31.0); Mean Corpuscular Volume 96.1 fl (78.0-98.0); Mean Platelet Volume 6.8 fL (7.4-10.4); Platelet Count 362 10x3/uL (130-400); RBC Distribution Width 11.7 % (11.5-14.5); Red Blood Cell (RBC) Count 4.61 mill/uL (4.70-6.10); White Blood Cell (WBC) Count 16.3 10x3/uL (4.8-10.8)
[2022-07-05 06:52] LABS: Anion Gap 13 mmol/L (10-20); BUN (Urea Nitrogen) 13 mg/dL (8.4-25.7); Calc. Creatinine Clearance 113 mL/min (70-130); Calcium 8.9 mg/dL (7.8-10.44); Carbon Dioxide 26 mmol/L (23-31); Chloride 103 mmol/L (98-107); Estimated GFR 100; Glucose 111 mg/dL (80-115); Potassium 4.1 mmol/L (3.5-5.1); Sodium 138 mmol/L (136-145)
[2022-07-05] MEDS: VANCOMYCIN 1.25 GM/250 ML BAG 1.25 GM in Premix Bag 1 BAG IVPB SCH ×2 (08:56→20:13)
[2022-07-05] MEDS: Docusate 100 MG CAP PO SCH ×2 (08:57→20:13)
[2022-07-05] MEDS: Lisinopril 10 MG TAB PO SCH (08:57)
[2022-07-05] MEDS: Famotidine 20 MG TAB PO SCH ×3 (08:57→20:13)
[2022-07-05] MEDS: Aspirin 81 mg Enteric Coated Tablet PO SCH (08:57)
[2022-07-05] MEDS: Gabapentin 300 MG CAP PO SCH ×3 (08:57→20:12)
[2022-07-05] MEDS: Varenicline Tartrate 0.5 MG TAB PO SCH ×2 (08:59→20:12)
[2022-07-05] MEDS: Lactated Ringer's 1,000 ML IV SCH (10:41)
[2022-07-05] MEDS: Nicotine 14 MG PATCH TD SCH (14:09)
[2022-07-05] MEDS: Atorvastatin Calcium 40 MG TAB PO SCH (20:13)
[2022-07-05] MEDS: Cyclobenzaprine 10 MG TAB PO PRN (20:18)
[2022-07-06] MEDS: Lactated Ringer's 1,000 ML IV SCH ×3 (01:38→22:51)
[2022-07-06] MEDS: Cefepime 2 GM in Sodium Chloride 0.9% 100 ML IVPB SCH ×2 (05:08→16:42)
[2022-07-06] MEDS: HYDROcodone/Acetaminophen 5/325 mg Tablet PO PRN ×4 (05:16→22:50)
[2022-07-06] MEDS ORDERED: Protamine Sulfate 50 MG/5 ML VIAL ONE ×2 (06:54→11:24)
[2022-07-06] MEDS ORDERED: Heparin 5,000 UNITS/ML VIAL ONE ×2 (06:54→11:24)
[2022-07-06] MEDS ORDERED: Fentanyl 250 MCG/5 ML VIAL ONE (07:08)
[2022-07-06] MEDS ORDERED: Dexmedetomidine 200 MCG/2 ML VIAL ONE (07:08)
[2022-07-06 07:18] LABS: #Eosinphils 0.2 thou/uL (0.0-0.7); #Lymphocytes 2.7 thou/uL (1.20-3.40); #Monocytes 0.8 thou/uL (0.11-0.59); %Basophils 0.4 % (0.0-1.0); %Eosinophils 2.3 % (0.0-10.0); %Lymphocytes 27.9 % (21.0-51.0); %Monocytes 7.8 % (0.0-10.0); %Neutrophils 61.5 % (42.0-75.0); Hemoglobin 13.4 g/dL (14.0-18.0); Mean Corpuscular HGB CONC 33.9 g/dL (32.0-36.0); Mean Corpuscular Volume 97.2 fl (78.0-98.0); Mean Platelet Volume 6.9 fL (7.4-10.4); Platelet Count 300 10x3/uL (130-400); RBC Distribution Width 11.8 % (11.5-14.5); Red Blood Cell (RBC) Count 4.06 mill/uL (4.70-6.10); White Blood Cell (WBC) Count 9.7 10x3/uL (4.8-10.8)
[2022-07-06 07:33] LABS: Vancomycin, Trough 16.5 ug/mL
[2022-07-06 07:37] LABS: ALT (SGPT) 22 U/L (8-55); AST (SGOT) 18 U/L (5-34); Albumin 3.2 g/dL (3.4-4.8); Alkaline Phosphatase 80 U/L (40-110); Anion Gap 12 mmol/L (10-20); BUN (Urea Nitrogen) 11 mg/dL (8.4-25.7); Bilirubin, Total 0.3 mg/dL (0.2-1.2); Calc. Creatinine Clearance 105 mL/min (70-130); Calcium 8.7 mg/dL (7.8-10.44); Carbon Dioxide 27 mmol/L (23-31); Chloride 106 mmol/L (98-107); Estimated GFR 97; Globulin 2.8 g/dL (2.4-3.5); Glucose 87 mg/dL (80-115); Phosphorus 2.8 mg/dL (2.3-4.7); Potassium 4.5 mmol/L (3.5-5.1); Sodium 140 mmol/L (136-145)
[2022-07-06] MEDS ORDERED: Dexamethasone 20 MG/5 ML VIAL ONE (08:17)
[2022-07-06] MEDS ORDERED: Lidocaine 1% PF 5 ML VIAL ONE (08:17)
[2022-07-06] MEDS ORDERED: ePHEDrine 50 MG/ML VIAL ONE (08:17)
[2022-07-06] MEDS ORDERED: PROPOFOL 200 MG/20 ML VIAL ONE ×2 (08:17→11:36)
[2022-07-06] MEDS ORDERED: Rocuronium Bromide 10 MG/ML (10ML VIAL) ONE (08:17)
[2022-07-06] MEDS ORDERED: Ondansetron PF 4 MG/2 ML Vial ONE (08:17)
[2022-07-06] MEDS ORDERED: PHENYLEPHRINE-NS 100 MCG/ML 10 ML SYRINGE ONE ×2 (08:17→11:36)
[2022-07-06] MEDS ORDERED: Labetalol HCl 100 MG/20 ML VIAL ONE (08:17)
[2022-07-06] MEDS ORDERED: Famotidine/PF 20 mg/2ml Vial ONE (09:28)
[2022-07-06] MEDS ORDERED: SUGAMMADEX SODIUM 200 MG/2 ML VIAL ONE (09:28)
[2022-07-06] MEDS ORDERED: Dexamethasone 4 mg/ml Vial ONE (10:36)
[2022-07-06] MEDS ORDERED: Bupivacaine HCl 0.5%/Epinephrine 1:200,000/PF 30 ml Vial ONE (10:37)
[2022-07-06] MEDS ORDERED: Promethazine HCl 25 MG/ML VIAL IM PRN (11:11)
[2022-07-06] MEDS ORDERED: Ondansetron HCl/PF 4 MG/2 ML Vial IVP PRN (11:11)
[2022-07-06] MEDS ORDERED: Fentanyl 100 MCG/2 ML VIAL ONE ×3 (11:12→12:53)
[2022-07-06] MEDS ORDERED: HYDROcodone/Acetaminophen 5/325 mg Tablet PO PRN (13:52)
[2022-07-06] MEDS ORDERED: Fentanyl 100 MCG/2 ML VIAL SLOW IVP PRN ×2 (13:52→13:53)
[2022-07-06] MEDS: Gabapentin 300 MG CAP PO SCH ×3 (14:19→20:39)
[2022-07-06] MEDS: VANCOMYCIN 1.25 GM/250 ML BAG 1.25 GM in Premix Bag 1 BAG IVPB SCH ×2 (14:27→20:41)
[2022-07-06] MEDS: Varenicline Tartrate 0.5 MG TAB PO SCH ×2 (14:28→20:38)
[2022-07-06] MEDS: Lisinopril 10 MG TAB PO SCH (14:28)
[2022-07-06] MEDS: Aspirin 81 mg Enteric Coated Tablet PO SCH (14:28)
[2022-07-06] MEDS: Famotidine 20 MG TAB PO SCH ×2 (14:28→20:47)
[2022-07-06] MEDS: Docusate 100 MG CAP PO SCH ×2 (14:28→20:40)
[2022-07-06] MEDS: Nicotine 14 MG PATCH TD SCH (16:41)
[2022-07-06] MEDS: Cyclobenzaprine 10 MG TAB PO PRN (16:41)
[2022-07-06] MEDS: Atorvastatin Calcium 40 MG TAB PO SCH (20:40)
[2022-07-07] MEDS: HYDROcodone/Acetaminophen 5/325 mg Tablet PO PRN ×4 (02:57→20:17)
[2022-07-07] MEDS: Cefepime 2 GM in Sodium Chloride 0.9% 100 ML IVPB SCH (05:33)
[2022-07-07 05:53] LABS: #Eosinphils 0.1 thou/uL (0.0-0.7); #Monocytes 0.9 thou/uL (0.11-0.59); #Neutrophils 9.1 thou/uL (1.40-6.50); %Basophils 0.1 % (0.0-1.0); %Eosinophils 0.7 % (0.0-10.0); %Lymphocytes 16.3 % (21.0-51.0); %Monocytes 7.8 % (0.0-10.0); %Neutrophils 75.1 % (42.0-75.0); Hemoglobin 10.4 g/dL (14.0-18.0); Mean Corpuscular HGB CONC 33.7 g/dL (32.0-36.0); Mean Corpuscular Hemoglobin 32.6 pg (27.0-31.0); Mean Corpuscular Volume 96.7 fl (78.0-98.0); Mean Platelet Volume 6.7 fL (7.4-10.4); Platelet Count 290 10x3/uL (130-400); RBC Distribution Width 11.6 % (11.5-14.5); Red Blood Cell (RBC) Count 3.18 mill/uL (4.70-6.10); White Blood Cell (WBC) Count 12.2 10x3/uL (4.8-10.8)
[2022-07-07 06:08] LABS: Anion Gap 10 mmol/L (10-20); BUN (Urea Nitrogen) 10 mg/dL (8.4-25.7); Calc. Creatinine Clearance 113 mL/min (70-130); Calcium 8.3 mg/dL (7.8-10.44); Carbon Dioxide 27 mmol/L (23-31); Chloride 106 mmol/L (98-107); Estimated GFR 100; Glucose 102 mg/dL (80-115); Potassium 4.3 mmol/L (3.5-5.1); Sodium 139 mmol/L (136-145)
[2022-07-07] MEDS: Clopidogrel Bisulfate 75 MG TAB PO SCH (09:25)
[2022-07-07] MEDS: Varenicline Tartrate 0.5 MG TAB PO SCH ×2 (09:25→20:17)
[2022-07-07] MEDS: Gabapentin 300 MG CAP PO SCH ×3 (09:26→20:17)
[2022-07-07] MEDS: Docusate 100 MG CAP PO SCH ×2 (09:26→20:17)
[2022-07-07] MEDS: Famotidine 20 MG TAB PO SCH ×2 (09:26→20:17)
[2022-07-07] MEDS: Lisinopril 10 MG TAB PO SCH (09:26)
[2022-07-07] MEDS: Aspirin 81 mg Enteric Coated Tablet PO SCH (09:26)
[2022-07-07] MEDS: VANCOMYCIN 1.25 GM/250 ML BAG 1.25 GM in Premix Bag 1 BAG IVPB SCH ×2 (10:32→20:17)
[2022-07-07 11:23] VITALS: BMI 22.4
[2022-07-07 19:31] LABS: Vancomycin, Trough 14.1 ug/mL
[2022-07-07] MEDS: Atorvastatin Calcium 40 MG TAB PO SCH (20:17)
[2022-07-08] MEDS: HYDROcodone/Acetaminophen 5/325 mg Tablet PO PRN ×5 (00:36→20:27)
[2022-07-08] MEDS: Cyclobenzaprine 10 MG TAB PO PRN ×3 (00:38→18:13)
[2022-07-08 06:37] LABS: #Basophils 0.1 thou/uL (0.0-0.2); #Eosinphils 0.2 thou/uL (0.0-0.7); #Lymphocytes 2.6 thou/uL (1.20-3.40); #Neutrophils 7.7 thou/uL (1.40-6.50); %Basophils 0.5 % (0.0-1.0); %Eosinophils 1.6 % (0.0-10.0); %Lymphocytes 22.4 % (21.0-51.0); %Monocytes 8.8 % (0.0-10.0); %Neutrophils 66.7 % (42.0-75.0); Hemoglobin 9.7 g/dL (14.0-18.0); Mean Corpuscular HGB CONC 33.8 g/dL (32.0-36.0); Mean Corpuscular Hemoglobin 32.6 pg (27.0-31.0); Mean Corpuscular Volume 96.5 fl (78.0-98.0); Mean Platelet Volume 6.8 fL (7.4-10.4); Platelet Count 251 10x3/uL (130-400); RBC Distribution Width 11.7 % (11.5-14.5); Red Blood Cell (RBC) Count 2.98 mill/uL (4.70-6.10); White Blood Cell (WBC) Count 11.5 10x3/uL (4.8-10.8)
[2022-07-08 06:58] LABS: Anion Gap 7 mmol/L (10-20); BUN (Urea Nitrogen) 14 mg/dL (8.4-25.7); Calc. Creatinine Clearance 118 mL/min (70-130); Calcium 8.6 mg/dL (7.8-10.44); Carbon Dioxide 32 mmol/L (23-31); Chloride 104 mmol/L (98-107); Estimated GFR 101; Glucose 111 mg/dL (80-115); Sodium 139 mmol/L (136-145)
[2022-07-08] MEDS: Clopidogrel Bisulfate 75 MG TAB PO SCH (09:31)
[2022-07-08] MEDS: Varenicline Tartrate 0.5 MG TAB PO SCH ×2 (09:31→20:28)
[2022-07-08] MEDS: VANCOMYCIN 1.25 GM/250 ML BAG 1.25 GM in Premix Bag 1 BAG IVPB SCH ×2 (09:31→20:26)
[2022-07-08] MEDS: Lisinopril 10 MG TAB PO SCH (09:32)
[2022-07-08] MEDS: Gabapentin 300 MG CAP PO SCH ×3 (09:32→20:27)
[2022-07-08] MEDS: Famotidine 20 MG TAB PO SCH ×2 (09:32→20:28)
[2022-07-08] MEDS: Aspirin 81 mg Enteric Coated Tablet PO SCH (09:32)
[2022-07-08] MEDS: Docusate 100 MG CAP PO SCH ×2 (09:32→20:27)
[2022-07-08] MEDS: Atorvastatin Calcium 40 MG TAB PO SCH (20:27)
[2022-07-09] MEDS: HYDROcodone/Acetaminophen 5/325 mg Tablet PO PRN ×5 (00:42→21:00)
[2022-07-09 08:01] LABS: #Eosinphils 0.2 thou/uL (0.0-0.7); #Lymphocytes 2.5 thou/uL (1.20-3.40); #Neutrophils 10.1 thou/uL (1.40-6.50); %Basophils 0.3 % (0.0-1.0); %Eosinophils 1.2 % (0.0-10.0); %Monocytes 7.5 % (0.0-10.0); %Neutrophils 73.1 % (42.0-75.0); Hemoglobin 10.7 g/dL (14.0-18.0); Mean Corpuscular HGB CONC 32.9 g/dL (32.0-36.0); Mean Corpuscular Hemoglobin 31.9 pg (27.0-31.0); Mean Corpuscular Volume 97.1 fl (78.0-98.0); Mean Platelet Volume 6.8 fL (7.4-10.4); Platelet Count 342 10x3/uL (130-400); RBC Distribution Width 11.9 % (11.5-14.5); Red Blood Cell (RBC) Count 3.37 mill/uL (4.70-6.10); White Blood Cell (WBC) Count 13.8 10x3/uL (4.8-10.8)
[2022-07-09 08:20] LABS: Anion Gap 12 mmol/L (10-20); BUN (Urea Nitrogen) 16 mg/dL (8.4-25.7); Calc. Creatinine Clearance 112 mL/min (70-130); Carbon Dioxide 28 mmol/L (23-31); Chloride 100 mmol/L (98-107); Estimated GFR 99; Glucose 105 mg/dL (80-115); Sodium 136 mmol/L (136-145)
[2022-07-09] MEDS: Aspirin 81 mg Enteric Coated Tablet PO SCH (08:23)
[2022-07-09] MEDS: Clopidogrel Bisulfate 75 MG TAB PO SCH (08:23)
[2022-07-09] MEDS: Famotidine 20 MG TAB PO SCH ×2 (08:23→21:03)
[2022-07-09] MEDS: Docusate 100 MG CAP PO SCH ×2 (08:23→21:02)
[2022-07-09] MEDS: Varenicline Tartrate 0.5 MG TAB PO SCH ×2 (08:23→21:02)
[2022-07-09] MEDS: Gabapentin 300 MG CAP PO SCH ×3 (08:24→21:02)
[2022-07-09] MEDS: Lisinopril 10 MG TAB PO SCH (08:26)
[2022-07-09] MEDS: VANCOMYCIN 1.25 GM/250 ML BAG 1.25 GM in Premix Bag 1 BAG IVPB SCH ×2 (08:58→21:00)
[2022-07-09] MEDS: Cyclobenzaprine 10 MG TAB PO PRN (11:30)
[2022-07-09] MEDS: Atorvastatin Calcium 40 MG TAB PO SCH (21:02)
[2022-07-10] MEDS: HYDROcodone/Acetaminophen 5/325 mg Tablet PO PRN ×3 (02:41→14:37)
[2022-07-10] MEDS: Cyclobenzaprine 10 MG TAB PO PRN (02:46)
[2022-07-10 04:37] LABS: #Eosinphils 0.2 thou/uL (0.0-0.7); #Lymphocytes 2.2 thou/uL (1.20-3.40); #Monocytes 0.9 thou/uL (0.11-0.59); %Basophils 0.4 % (0.0-1.0); %Eosinophils 2.1 % (0.0-10.0); %Lymphocytes 19.5 % (21.0-51.0); %Neutrophils 69.9 % (42.0-75.0); Hemoglobin 9.8 g/dL (14.0-18.0); Mean Corpuscular HGB CONC 33.4 g/dL (32.0-36.0); Mean Corpuscular Volume 95.9 fl (78.0-98.0); Platelet Count 311 10x3/uL (130-400); RBC Distribution Width 11.9 % (11.5-14.5); Red Blood Cell (RBC) Count 3.07 mill/uL (4.70-6.10); White Blood Cell (WBC) Count 11.5 10x3/uL (4.8-10.8)
[2022-07-10 04:57] LABS: Anion Gap 11 mmol/L (10-20); BUN (Urea Nitrogen) 19 mg/dL (8.4-25.7); Calc. Creatinine Clearance 113 mL/min (70-130); Calcium 8.8 mg/dL (7.8-10.44); Carbon Dioxide 28 mmol/L (23-31); Chloride 103 mmol/L (98-107); Estimated GFR 100; Glucose 107 mg/dL (80-115); Potassium 4.1 mmol/L (3.5-5.1); Sodium 138 mmol/L (136-145)
[2022-07-10] MEDS: VANCOMYCIN 1.25 GM/250 ML BAG 1.25 GM in Premix Bag 1 BAG IVPB SCH (08:08)
[2022-07-10] MEDS: Famotidine 20 MG TAB PO SCH (08:14)
[2022-07-10] MEDS: Aspirin 81 mg Enteric Coated Tablet PO SCH (08:15)
[2022-07-10] MEDS: Gabapentin 300 MG CAP PO SCH ×2 (08:16→14:37)
[2022-07-10] MEDS: Lisinopril 10 MG TAB PO SCH (08:16)
[2022-07-10] MEDS: Clopidogrel Bisulfate 75 MG TAB PO SCH (08:16)
[2022-07-10] MEDS: Docusate 100 MG CAP PO SCH (08:16)
[2022-07-10] MEDS: Varenicline Tartrate 0.5 MG TAB PO SCH (09:45)
[2022-07-10 12:24] VITALS: TEMP 98
[2022-07-10 16:03] VITALS: BP 107/66
== END 2022-07-10 16:10 | disposition home or self-care (01) | DRG 240 ==
LOC: T4-A 07-02 14:56 → SURG A 07-06 08:54
PROVIDERS: ADMIT Surgery; ATTEND Hospitalist
PROC: 0Y6M0Z8 Detachment at Right Foot, Complete 5th Ray, Open Approach (ICD-10-PCS; principal; 2022-07-04)
PROC: 047H341 Dilation of Right External Iliac Artery with Drug-eluting Intraluminal Device, using Drug-Coated Balloon, Percutaneous Approach (ICD-10-PCS; 2022-07-04)
PROC: 041K09N Bypass Right Femoral Artery to Posterior Tibial Artery with Autologous Venous Tissue, Open Approach (ICD-10-PCS; 2022-07-04)
PROC: 06BQ0ZZ Excision of Left Saphenous Vein, Open Approach (ICD-10-PCS; 2022-07-04)
PROC: 0Y3C0ZZ Control Bleeding in Right Upper Leg, Open Approach (ICD-10-PCS; 2022-07-06)
PROC: 02HV33Z Insertion of Infusion Device into Superior Vena Cava, Percutaneous Approach (ICD-10-PCS; 2022-07-08)
PROC: B548ZZA Ultrasonography of Superior Vena Cava, Guidance (ICD-10-PCS; 2022-07-08)
DX: I70.261 Atherosclerosis of native arteries of extremities with gangrene, right leg (principal); D62 Acute posthemorrhagic anemia; L03.115 Cellulitis of right lower limb; M86.171 Other acute osteomyelitis, right ankle and foot; L97.519 Non-pressure chronic ulcer of other part of right foot with unspecified severity; Z20.822 Contact with and (suspected) exposure to COVID-19; I10 Essential (primary) hypertension; F17.210 Nicotine dependence, cigarettes, uncomplicated; E78.00 Pure hypercholesterolemia, unspecified; M19.90 Unspecified osteoarthritis, unspecified site; K21.9 Gastro-esophageal reflux disease without esophagitis; Z79.01 Long term (current) use of anticoagulants; Z79.899 Other long term (current) drug therapy; Z79.82 Long term (current) use of aspirin; Z88.0 Allergy status to penicillin; B95.62 Methicillin resistant Staphylococcus aureus infection as the cause of diseases classified elsewhere
CPT/HCPCS: 36246; 36415; 36569; 80048; 80053; 80202; 83735; 84100; 85025; 85347; 87040; 87070; 87077; 87186; 87205; 87811; 88305; 88311; 93005; 93010; 97139; 99152; 99153; C1725; C1751; C1769; C1776; J0692; J1100; J1644; J2001; J2250; J2405; J2704; J2720; J3010; J3370; J3490; J7120; Q9967; S0028; U0003; U0005

== ENCOUNTER 2023-02-26 16:58 | Inpatient (IN) | payer MEDICARE, OTHER, SELFPAY ==
[2023-02-26 17:54] LABS: #Eosinphils 0.2 thou/uL (0.0-0.7); #Monocytes 0.5 thou/uL (0.11-0.59); #Neutrophils 7.9 thou/uL (1.40-6.50); %Basophils 0.3 % (0.0-1.0); %Eosinophils 2.2 % (0.0-10.0); %Lymphocytes 8.9 % (21.0-51.0); %Monocytes 5.1 % (0.0-10.0); %Neutrophils 82.8 % (42.0-75.0); Hemoglobin 15.6 g/dL (14.0-18.0); Mean Corpuscular HGB CONC 33.2 g/dL (32.0-36.0); Mean Corpuscular Hemoglobin 31.7 pg (27.0-31.0); Mean Corpuscular Volume 95.5 fl (78.0-98.0); Platelet Count 269 10x3/uL (130-400); RBC Distribution Width 12.9 % (11.5-14.5); Red Blood Cell (RBC) Count 4.92 mill/uL (4.70-6.10); White Blood Cell (WBC) Count 9.5 10x3/uL (4.8-10.8)
[2023-02-26 18:10] LABS: PTT 36.7 sec (22.9-36.1); Prothrombin Time 13.5 sec (12.0-14.7)
[2023-02-26] MEDS ORDERED: Ondansetron PF 4 MG/2 ML Vial ONE (18:10)
[2023-02-26] MEDS ORDERED: Morphine 4 MG/ML VIAL ONE (18:10)
[2023-02-26] MEDS ORDERED: Piperacillin/Tazobactam 4.5 GM VIAL ONE (18:11)
[2023-02-26 18:29] LABS: ALT (SGPT) 15 U/L (8-55); AST (SGOT) 19 U/L (5-34); Albumin 4.2 g/dL (3.4-4.8); Alkaline Phosphatase 101 U/L (40-110); Anion Gap 12 mmol/L (10-20); BUN (Urea Nitrogen) 15 mg/dL (8.4-25.7); Bilirubin, Total 0.3 mg/dL (0.2-1.2); Calc. Creatinine Clearance 0 mL/min (70-130); Calcium 9.5 mg/dL (7.8-10.44); Carbon Dioxide 31 mmol/L (23-31); Chloride 100 mmol/L (98-107); Estimated GFR 71; Glucose 110 mg/dL (80-115); Protein, Total 8.2 g/dL (5.8-8.1); Sodium 139 mmol/L (136-145)
[2023-02-26] MEDS ORDERED: VANCOMYCIN 1.75 GM/500 ML BAG 1.75 GM in Premix Bag 1 BAG IVPB SCH (18:30)
[2023-02-26] MEDS ORDERED: diphenhydrAMINE 50 MG/ML VIAL ONE (18:44)
[2023-02-26] MEDS ORDERED: Acetaminophen 650 MG Suppository PR PRN (19:11)
[2023-02-26] MEDS ORDERED: Ondansetron PF 4 MG/2 ML Vial IVP PRN (21:30)
[2023-02-26] MEDS ORDERED: Ondansetron ODT 4 MG TAB SL PRN (21:30)
[2023-02-26] MEDS ORDERED: Morphine 4 MG/ML VIAL SLOW IVP PRN (21:31)
[2023-02-26] MEDS ORDERED: Sodium Chloride 0.9% 1,000 ML IV SCH (21:45)
[2023-02-26 21:52] VITALS: BMI 26.9
[2023-02-26] MEDS ORDERED: Clindamycin/D5W 900 MG in Premix Bag 1 BAG IVPB SCH (22:00)
[2023-02-26] MEDS: HYDROcodone/Acetaminophen 5/325 mg Tablet PO PRN (23:12)
[2023-02-26] MEDS: Piperacillin/Tazobactam 3.375 GM in Sodium Chloride 0.9% 100 ML IVPB SCH (23:14)
[2023-02-27] MEDS: Acetaminophen 325 MG TAB PO PRN (04:00)
[2023-02-27 05:52] LABS: #Eosinphils 0.2 thou/uL (0.0-0.7); #Monocytes 0.7 thou/uL (0.11-0.59); #Neutrophils 6.8 thou/uL (1.40-6.50); %Basophils 0.2 % (0.0-1.0); %Eosinophils 2.5 % (0.0-10.0); %Lymphocytes 7.6 % (21.0-51.0); %Monocytes 8.8 % (0.0-10.0); %Neutrophils 80.5 % (42.0-75.0); Hematocrit 40.2 % (42.0-52.0); Hemoglobin 13.1 g/dL (14.0-18.0); Mean Corpuscular HGB CONC 32.6 g/dL (32.0-36.0); Mean Corpuscular Hemoglobin 31.3 pg (27.0-31.0); Mean Corpuscular Volume 95.9 fl (78.0-98.0); Mean Platelet Volume 9.4 fL (7.4-10.4); Platelet Count 231 10x3/uL (130-400); RBC Distribution Width 12.9 % (11.5-14.5); Red Blood Cell (RBC) Count 4.19 mill/uL (4.70-6.10); White Blood Cell (WBC) Count 8.4 10x3/uL (4.8-10.8)
[2023-02-27] MEDS ORDERED: VANCOMYCIN 1.25 GM/250 ML BAG 1.25 GM in Premix Bag 1 BAG IVPB SCH (06:00)
[2023-02-27] MEDS: Piperacillin/Tazobactam 3.375 GM in Sodium Chloride 0.9% 100 ML IVPB SCH ×3 (06:12→20:52)
[2023-02-27 06:30] LABS: Anion Gap 14 mmol/L (10-20); BUN (Urea Nitrogen) 14 mg/dL (8.4-25.7); Calc. Creatinine Clearance 95 mL/min (70-130); Calcium 8.4 mg/dL (7.8-10.44); Carbon Dioxide 23 mmol/L (23-31); Chloride 105 mmol/L (98-107); Estimated GFR 85; Glucose 88 mg/dL (80-115); Potassium 4.2 mmol/L (3.5-5.1); Sodium 138 mmol/L (136-145)
[2023-02-27] MEDS: Mometasone 200 MCG/Formoterol 5 MCG 120 PUFF INHALER INH SCH (06:32)
[2023-02-27] MEDS ORDERED: Vancomycin 1 GM in Premix Bag 1 BAG IVPB SCH (09:00)
[2023-02-27] MEDS ORDERED: fentaNYL PF 100 MCG/2 ML SYRINGE ONE (09:00)
[2023-02-27] MEDS: Atorvastatin Calcium 40 MG TAB PO SCH (09:12)
[2023-02-27] MEDS: Gabapentin 300 MG CAP PO SCH ×3 (09:12→20:53)
[2023-02-27] MEDS ORDERED: Ondansetron PF 4 MG/2 ML Vial ONE (09:25)
[2023-02-27] MEDS ORDERED: PHENYLEPHRINE-NS 100 MCG/ML 10 ML SYRINGE ONE (09:25)
[2023-02-27] MEDS ORDERED: Lidocaine 1% PF 5 ML VIAL ONE (09:25)
[2023-02-27] MEDS ORDERED: PROPOFOL 200 MG/20 ML VIAL ONE (09:25)
[2023-02-27] MEDS ORDERED: Dexamethasone 4 mg/ml Vial ONE (09:33)
[2023-02-27] MEDS ORDERED: Bupivacaine PF 0.5% 30 ML VIAL ONE (09:33)
[2023-02-27] MEDS: Morphine 4 MG/ML VIAL SLOW IVP PRN ×2 (13:41→21:01)
[2023-02-27] MEDS: VANCOMYCIN 1.25 GM/250 ML BAG 1.25 GM in Premix Bag 1 BAG IVPB SCH (20:52)
[2023-02-28] MEDS: Mometasone 200 MCG/Formoterol 5 MCG 120 PUFF INHALER INH SCH ×3 (00:06→19:24)
[2023-02-28] MEDS: Morphine 4 MG/ML VIAL SLOW IVP PRN ×3 (02:27→22:48)
[2023-02-28] MEDS: Piperacillin/Tazobactam 3.375 GM in Sodium Chloride 0.9% 100 ML IVPB SCH ×3 (05:57→20:45)
[2023-02-28] MEDS: HYDROcodone/Acetaminophen 5/325 mg Tablet PO PRN ×4 (06:04→20:54)
[2023-02-28 08:26] LABS: #Monocytes 0.6 thou/uL (0.11-0.59); #Neutrophils 7.5 thou/uL (1.40-6.50); %Basophils 0.1 % (0.0-1.0); %Eosinophils 0.1 % (0.0-10.0); %Monocytes 6.5 % (0.0-10.0); %Neutrophils 81.9 % (42.0-75.0); Hematocrit 39.4 % (42.0-52.0); Hemoglobin 12.8 g/dL (14.0-18.0); Mean Corpuscular HGB CONC 32.5 g/dL (32.0-36.0); Mean Corpuscular Hemoglobin 31.4 pg (27.0-31.0); Mean Corpuscular Volume 96.8 fl (78.0-98.0); Platelet Count 222 10x3/uL (130-400); RBC Distribution Width 12.8 % (11.5-14.5); Red Blood Cell (RBC) Count 4.07 mill/uL (4.70-6.10); White Blood Cell (WBC) Count 9.1 10x3/uL (4.8-10.8)
[2023-02-28 08:46] LABS: Vancomycin, Trough 7.9 ug/mL
[2023-02-28 08:48] LABS: Anion Gap 12 mmol/L (10-20); BUN (Urea Nitrogen) 12 mg/dL (8.4-25.7); Calc. Creatinine Clearance 110 mL/min (70-130); Calcium 8.5 mg/dL (7.8-10.44); Carbon Dioxide 26 mmol/L (23-31); Chloride 100 mmol/L (98-107); Estimated GFR 96; Glucose 119 mg/dL (80-115); Potassium 3.9 mmol/L (3.5-5.1); Sodium 134 mmol/L (136-145)
[2023-02-28] MEDS: Atorvastatin Calcium 40 MG TAB PO SCH (09:47)
[2023-02-28] MEDS: Lisinopril 10 MG TAB PO SCH (09:47)
[2023-02-28] MEDS: Gabapentin 300 MG CAP PO SCH ×3 (09:48→20:44)
[2023-02-28] MEDS: VANCOMYCIN 1.25 GM/250 ML BAG 1.25 GM in Premix Bag 1 BAG IVPB SCH (10:27)
[2023-02-28] MEDS: VANCOMYCIN 1.75 GM/500 ML BAG 1.75 GM in Premix Bag 1 BAG IVPB SCH ×2 (10:27→22:48)
[2023-03-01] MEDS: Acetaminophen 325 MG TAB PO PRN (04:38)
[2023-03-01] MEDS: HYDROcodone/Acetaminophen 5/325 mg Tablet PO PRN ×4 (04:39→19:06)
[2023-03-01] MEDS: Piperacillin/Tazobactam 3.375 GM in Sodium Chloride 0.9% 100 ML IVPB SCH ×3 (04:40→21:58)
[2023-03-01 07:00] LABS: #Eosinphils 0.1 thou/uL (0.0-0.7); #Monocytes 0.5 thou/uL (0.11-0.59); #Neutrophils 5.2 thou/uL (1.40-6.50); %Basophils 0.3 % (0.0-1.0); %Eosinophils 1.5 % (0.0-10.0); %Lymphocytes 14.2 % (21.0-51.0); %Monocytes 7.3 % (0.0-10.0); %Neutrophils 76.4 % (42.0-75.0); Hematocrit 38.2 % (42.0-52.0); Hemoglobin 12.5 g/dL (14.0-18.0); Mean Corpuscular HGB CONC 32.7 g/dL (32.0-36.0); Mean Corpuscular Hemoglobin 31.3 pg (27.0-31.0); Mean Corpuscular Volume 95.5 fl (78.0-98.0); Mean Platelet Volume 9.4 fL (7.4-10.4); Platelet Count 208 10x3/uL (130-400); RBC Distribution Width 12.9 % (11.5-14.5); White Blood Cell (WBC) Count 6.7 10x3/uL (4.8-10.8)
[2023-03-01] MEDS: Mometasone 200 MCG/Formoterol 5 MCG 120 PUFF INHALER INH SCH ×2 (07:10→19:05)
[2023-03-01 07:22] LABS: Anion Gap 14 mmol/L (10-20); BUN (Urea Nitrogen) 16 mg/dL (8.4-25.7); Calc. Creatinine Clearance 120 mL/min (70-130); Calcium 8.1 mg/dL (7.8-10.44); Carbon Dioxide 23 mmol/L (23-31); Chloride 103 mmol/L (98-107); Estimated GFR 99; Glucose 84 mg/dL (80-115); Potassium 4.1 mmol/L (3.5-5.1); Sodium 136 mmol/L (136-145)
[2023-03-01] MEDS: Lisinopril 10 MG TAB PO SCH (10:09)
[2023-03-01] MEDS: Gabapentin 300 MG CAP PO SCH ×3 (10:09→21:21)
[2023-03-01] MEDS: Atorvastatin Calcium 40 MG TAB PO SCH (10:09)
[2023-03-01] MEDS: VANCOMYCIN 1.75 GM/500 ML BAG 1.75 GM in Premix Bag 1 BAG IVPB SCH ×2 (10:14→23:12)
[2023-03-01 22:30] LABS: Vancomycin, Trough 13.7 ug/mL
[2023-03-01] MEDS ORDERED: VANCOMYCIN 1.25 GM/250 ML BAG 1.25 GM in Premix Bag 1 BAG IVPB SCH (23:15)
[2023-03-02] MEDS: Morphine 4 MG/ML VIAL SLOW IVP PRN (01:51)
[2023-03-02] MEDS: VANCOMYCIN 1.25 GM/250 ML BAG 1.25 GM in Premix Bag 1 BAG IVPB SCH ×3 (05:55→22:19)
[2023-03-02] MEDS: Piperacillin/Tazobactam 3.375 GM in Sodium Chloride 0.9% 100 ML IVPB SCH ×2 (05:55→14:46)
[2023-03-02] MEDS: HYDROcodone/Acetaminophen 5/325 mg Tablet PO PRN ×5 (06:00→22:18)
[2023-03-02 06:33] LABS: #Eosinphils 0.1 thou/uL (0.0-0.7); #Monocytes 0.5 thou/uL (0.11-0.59); #Neutrophils 3.1 thou/uL (1.40-6.50); %Basophils 0.4 % (0.0-1.0); %Eosinophils 2.5 % (0.0-10.0); %Lymphocytes 22.7 % (21.0-51.0); %Monocytes 9.6 % (0.0-10.0); %Neutrophils 64.2 % (42.0-75.0); Hematocrit 39.5 % (42.0-52.0); Hemoglobin 13.3 g/dL (14.0-18.0); Mean Corpuscular HGB CONC 33.7 g/dL (32.0-36.0); Mean Corpuscular Hemoglobin 31.3 pg (27.0-31.0); Mean Corpuscular Volume 92.9 fl (78.0-98.0); Mean Platelet Volume 9.2 fL (7.4-10.4); Platelet Count 215 10x3/uL (130-400); RBC Distribution Width 12.8 % (11.5-14.5); Red Blood Cell (RBC) Count 4.25 mill/uL (4.70-6.10); White Blood Cell (WBC) Count 4.8 10x3/uL (4.8-10.8)
[2023-03-02 06:58] LABS: Anion Gap 13 mmol/L (10-20); BUN (Urea Nitrogen) 12 mg/dL (8.4-25.7); Calc. Creatinine Clearance 120 mL/min (70-130); Calcium 8.7 mg/dL (7.8-10.44); Carbon Dioxide 24 mmol/L (23-31); Chloride 101 mmol/L (98-107); Estimated GFR 99; Glucose 83 mg/dL (80-115); Sodium 134 mmol/L (136-145)
[2023-03-02] MEDS: Mometasone 200 MCG/Formoterol 5 MCG 120 PUFF INHALER INH SCH ×2 (07:09→19:04)
[2023-03-02] MEDS: Lisinopril 10 MG TAB PO SCH (09:59)
[2023-03-02] MEDS: Gabapentin 300 MG CAP PO SCH ×3 (09:59→19:59)
[2023-03-02] MEDS: Atorvastatin Calcium 40 MG TAB PO SCH (10:00)
[2023-03-02] MEDS: cefTRIAXone\\ROCEPHIN 1 GM in Sodium Chloride 0.9% 100 ML IVPB SCH (18:30)
[2023-03-02] MEDS: metroNIDAZOLE 500 MG TAB PO SCH (19:59)
[2023-03-03] MEDS: HYDROcodone/Acetaminophen 5/325 mg Tablet PO PRN ×4 (05:01→20:10)
[2023-03-03] MEDS: VANCOMYCIN 1.25 GM/250 ML BAG 1.25 GM in Premix Bag 1 BAG IVPB SCH ×3 (05:05→22:43)
[2023-03-03 05:40] LABS: Hematocrit 41.4 % (42.0-52.0); Hemoglobin 13.6 g/dL (14.0-18.0); Mean Corpuscular HGB CONC 32.9 g/dL (32.0-36.0); Mean Corpuscular Hemoglobin 31.1 pg (27.0-31.0); Mean Corpuscular Volume 94.5 fl (78.0-98.0); Mean Platelet Volume 9.3 fL (7.4-10.4); Platelet Count 224 10x3/uL (130-400); RBC Distribution Width 12.5 % (11.5-14.5); Red Blood Cell (RBC) Count 4.38 mill/uL (4.70-6.10); White Blood Cell (WBC) Count 5.1 10x3/uL (4.8-10.8)
[2023-03-03 05:42] LABS: Delete Auto Diff?? YES; Manual Diff?? YES
[2023-03-03 06:11] LABS: Band 20 % (5-11); CellaVision Operator ID LAB.CLH1; Eosinophils 4 % (0-10); Large Platelets 2.9 % (0-5); Lymphocytes 23 % (21-51); Monocytes 10 % (0-10); Neutrophil 40 % (42-75); Platelet Adequacy Comment Platelets Normal; Reactive Lymphocytes 2 % (0-10); Total Cell Count 102
[2023-03-03 06:13] LABS: Anion Gap 14 mmol/L (10-20); BUN (Urea Nitrogen) 14 mg/dL (8.4-25.7); Calc. Creatinine Clearance 123 mL/min (70-130); Calcium 8.8 mg/dL (7.8-10.44); Carbon Dioxide 23 mmol/L (23-31); Chloride 103 mmol/L (98-107); Estimated GFR 100; Glucose 88 mg/dL (80-115); Sodium 136 mmol/L (136-145)
[2023-03-03] MEDS: Mometasone 200 MCG/Formoterol 5 MCG 120 PUFF INHALER INH SCH ×2 (06:48→19:23)
[2023-03-03] MEDS: Lisinopril 10 MG TAB PO SCH (09:42)
[2023-03-03] MEDS: Gabapentin 300 MG CAP PO SCH ×3 (09:43→20:11)
[2023-03-03] MEDS: metroNIDAZOLE 500 MG TAB PO SCH ×3 (09:45→20:11)
[2023-03-03] MEDS ORDERED: Amlodipine 10 MG TAB PO SCH (09:45)
[2023-03-03] MEDS: Atorvastatin Calcium 40 MG TAB PO SCH (09:45)
[2023-03-03] MEDS: Morphine 4 MG/ML VIAL SLOW IVP PRN (12:28)
[2023-03-03] MEDS: cefTRIAXone\\ROCEPHIN 1 GM in Sodium Chloride 0.9% 100 ML IVPB SCH (18:50)
[2023-03-03 21:52] LABS: Vancomycin, Trough 18.3 ug/mL
[2023-03-04] MEDS: VANCOMYCIN 1.25 GM/250 ML BAG 1.25 GM in Premix Bag 1 BAG IVPB SCH ×2 (05:56→14:37)
[2023-03-04] MEDS: HYDROcodone/Acetaminophen 5/325 mg Tablet PO PRN ×4 (05:57→20:47)
[2023-03-04 06:35] LABS: #Eosinphils 0.2 thou/uL (0.0-0.7); #Monocytes 0.4 thou/uL (0.11-0.59); #Neutrophils 6.3 thou/uL (1.40-6.50); %Basophils 0.2 % (0.0-1.0); %Eosinophils 2.3 % (0.0-10.0); %Lymphocytes 20.5 % (21.0-51.0); %Monocytes 4.9 % (0.0-10.0); %Neutrophils 71.8 % (42.0-75.0); Hematocrit 42.6 % (42.0-52.0); Hemoglobin 14.5 g/dL (14.0-18.0); Mean Corpuscular Hemoglobin 31.3 pg (27.0-31.0); Mean Platelet Volume 9.3 fL (7.4-10.4); Platelet Count 267 10x3/uL (130-400); RBC Distribution Width 12.5 % (11.5-14.5); Red Blood Cell (RBC) Count 4.63 mill/uL (4.70-6.10); White Blood Cell (WBC) Count 8.7 10x3/uL (4.8-10.8)
[2023-03-04] MEDS: Mometasone 200 MCG/Formoterol 5 MCG 120 PUFF INHALER INH SCH ×2 (07:17→19:06)
[2023-03-04 07:37] LABS: Anion Gap 14 mmol/L (10-20); BUN (Urea Nitrogen) 15 mg/dL (8.4-25.7); Calc. Creatinine Clearance 119 mL/min (70-130); Calcium 9.2 mg/dL (7.8-10.44); Carbon Dioxide 24 mmol/L (23-31); Chloride 103 mmol/L (98-107); Estimated GFR 99; Glucose 102 mg/dL (80-115); Potassium 4.1 mmol/L (3.5-5.1); Sodium 137 mmol/L (136-145)
[2023-03-04] MEDS ORDERED: Iopamidol-370 76% 500 ML MDV (1 ML CHARGE) ONE (09:23)
[2023-03-04] MEDS: Gabapentin 300 MG CAP PO SCH ×3 (09:49→20:47)
[2023-03-04] MEDS: Atorvastatin Calcium 40 MG TAB PO SCH (09:50)
[2023-03-04] MEDS: metroNIDAZOLE 500 MG TAB PO SCH ×3 (09:50→20:47)
[2023-03-04] MEDS: Amlodipine 10 MG TAB PO SCH (09:52)
[2023-03-04] MEDS: Lisinopril 10 MG TAB PO SCH (09:52)
[2023-03-04 17:41] LABS: Troponin I 0.026 ng/mL (< 0.028)
[2023-03-04] MEDS: cefTRIAXone\\ROCEPHIN 1 GM in Sodium Chloride 0.9% 100 ML IVPB SCH (18:36)
[2023-03-04 21:47] LABS: Troponin I 0.027 ng/mL (< 0.028)
[2023-03-04 23:33] LABS: Vancomycin, Trough 20.1 ug/mL
[2023-03-05] MEDS: VANCOMYCIN 1.25 GM/250 ML BAG 1.25 GM in Premix Bag 1 BAG IVPB SCH ×4 (00:17→23:06)
[2023-03-05 01:09] LABS: Troponin I 0.018 ng/mL (< 0.028)
[2023-03-05] MEDS: HYDROcodone/Acetaminophen 5/325 mg Tablet PO PRN ×4 (06:09→21:58)
[2023-03-05 06:23] LABS: #Eosinphils 0.2 thou/uL (0.0-0.7); #Monocytes 0.6 thou/uL (0.11-0.59); #Neutrophils 5.6 thou/uL (1.40-6.50); %Basophils 0.4 % (0.0-1.0); %Eosinophils 2.1 % (0.0-10.0); %Lymphocytes 20.4 % (21.0-51.0); %Monocytes 6.9 % (0.0-10.0); %Neutrophils 69.7 % (42.0-75.0); Hematocrit 39.6 % (42.0-52.0); Hemoglobin 13.4 g/dL (14.0-18.0); Mean Corpuscular HGB CONC 33.8 g/dL (32.0-36.0); Mean Corpuscular Volume 91.7 fl (78.0-98.0); Mean Platelet Volume 9.2 fL (7.4-10.4); Platelet Count 255 10x3/uL (130-400); RBC Distribution Width 12.5 % (11.5-14.5); Red Blood Cell (RBC) Count 4.32 mill/uL (4.70-6.10); White Blood Cell (WBC) Count 8.1 10x3/uL (4.8-10.8)
[2023-03-05 06:45] LABS: Anion Gap 16 mmol/L (10-20); BUN (Urea Nitrogen) 13 mg/dL (8.4-25.7); Calc. Creatinine Clearance 130 mL/min (70-130); Calcium 8.6 mg/dL (7.8-10.44); Carbon Dioxide 21 mmol/L (23-31); Chloride 105 mmol/L (98-107); Estimated GFR 101; Glucose 92 mg/dL (80-115); Sodium 138 mmol/L (136-145)
[2023-03-05] MEDS: Mometasone 200 MCG/Formoterol 5 MCG 120 PUFF INHALER INH SCH ×2 (07:22→19:25)
[2023-03-05] MEDS: metroNIDAZOLE 500 MG TAB PO SCH ×3 (08:09→21:50)
[2023-03-05] MEDS: Atorvastatin Calcium 40 MG TAB PO SCH (09:00)
[2023-03-05] MEDS: Amlodipine 10 MG TAB PO SCH (09:00)
[2023-03-05] MEDS: Lisinopril 10 MG TAB PO SCH (09:00)
[2023-03-05] MEDS: Gabapentin 300 MG CAP PO SCH ×3 (09:00→21:49)
[2023-03-05] MEDS ORDERED: Lidocaine 1% PF 5 ML VIAL ONE (09:33)
[2023-03-05] MEDS ORDERED: PHENYLEPHRINE-NS 100 MCG/ML 10 ML SYRINGE ONE (09:33)
[2023-03-05] MEDS ORDERED: PROPOFOL 200 MG/20 ML VIAL ONE (09:33)
[2023-03-05] MEDS ORDERED: Promethazine HCl 25 MG/ML VIAL IM PRN (10:02)
[2023-03-05] MEDS ORDERED: Ondansetron HCl/PF 4 MG/2 ML Vial IVP PRN (10:02)
[2023-03-05] MEDS ORDERED: fentaNYL PF 100 MCG/2 ML SYRINGE ONE (10:11)
[2023-03-05] MEDS: cefTRIAXone\\ROCEPHIN 1 GM in Sodium Chloride 0.9% 100 ML IVPB SCH (17:54)
[2023-03-05 22:44] LABS: Vancomycin, Trough 16.2 ug/mL
[2023-03-06 04:28] LABS: #Eosinphils 0.2 thou/uL (0.0-0.7); #Monocytes 0.6 thou/uL (0.11-0.59); #Neutrophils 6.3 thou/uL (1.40-6.50); %Basophils 0.1 % (0.0-1.0); %Eosinophils 1.9 % (0.0-10.0); %Lymphocytes 19.4 % (21.0-51.0); %Monocytes 6.5 % (0.0-10.0); %Neutrophils 71.8 % (42.0-75.0); Hematocrit 37.7 % (42.0-52.0); Hemoglobin 12.8 g/dL (14.0-18.0); Mean Corpuscular Hemoglobin 31.4 pg (27.0-31.0); Mean Corpuscular Volume 92.6 fl (78.0-98.0); Mean Platelet Volume 9.5 fL (7.4-10.4); Platelet Count 264 10x3/uL (130-400); RBC Distribution Width 12.3 % (11.5-14.5); Red Blood Cell (RBC) Count 4.07 mill/uL (4.70-6.10); White Blood Cell (WBC) Count 8.8 10x3/uL (4.8-10.8)
[2023-03-06 04:59] LABS: Anion Gap 14 mmol/L (10-20); BUN (Urea Nitrogen) 17 mg/dL (8.4-25.7); Calc. Creatinine Clearance 130 mL/min (70-130); Calcium 8.6 mg/dL (7.8-10.44); Carbon Dioxide 21 mmol/L (23-31); Chloride 106 mmol/L (98-107); Estimated GFR 101; Glucose 132 mg/dL (80-115); Potassium 3.8 mmol/L (3.5-5.1); Sodium 137 mmol/L (136-145)
[2023-03-06] MEDS: VANCOMYCIN 1.25 GM/250 ML BAG 1.25 GM in Premix Bag 1 BAG IVPB SCH ×3 (05:52→23:53)
[2023-03-06] MEDS: Mometasone 200 MCG/Formoterol 5 MCG 120 PUFF INHALER INH SCH ×2 (07:43→18:48)
[2023-03-06] MEDS: HYDROcodone/Acetaminophen 5/325 mg Tablet PO PRN ×3 (08:46→20:40)
[2023-03-06] MEDS: Lisinopril 10 MG TAB PO SCH (08:47)
[2023-03-06] MEDS: Atorvastatin Calcium 40 MG TAB PO SCH (08:47)
[2023-03-06] MEDS: Amlodipine 10 MG TAB PO SCH (08:47)
[2023-03-06] MEDS: metroNIDAZOLE 500 MG TAB PO SCH ×3 (08:48→20:34)
[2023-03-06] MEDS: Gabapentin 300 MG CAP PO SCH ×3 (08:48→20:34)
[2023-03-06] MEDS: cefTRIAXone\\ROCEPHIN 1 GM in Sodium Chloride 0.9% 100 ML IVPB SCH (18:25)
[2023-03-06 23:00] LABS: Vancomycin, Trough 17.8 ug/mL
[2023-03-07] MEDS: VANCOMYCIN 1.25 GM/250 ML BAG 1.25 GM in Premix Bag 1 BAG IVPB SCH ×3 (06:12→21:28)
[2023-03-07] MEDS: Mometasone 200 MCG/Formoterol 5 MCG 120 PUFF INHALER INH SCH ×2 (07:34→18:37)
[2023-03-07 07:49] LABS: #Eosinphils 0.2 thou/uL (0.0-0.7); #Monocytes 0.8 thou/uL (0.11-0.59); #Neutrophils 8.1 thou/uL (1.40-6.50); %Basophils 0.2 % (0.0-1.0); %Eosinophils 1.4 % (0.0-10.0); %Lymphocytes 16.5 % (21.0-51.0); %Monocytes 7.4 % (0.0-10.0); Hematocrit 39.7 % (42.0-52.0); Hemoglobin 13.2 g/dL (14.0-18.0); Mean Corpuscular HGB CONC 33.2 g/dL (32.0-36.0); Mean Corpuscular Hemoglobin 31.1 pg (27.0-31.0); Mean Corpuscular Volume 93.6 fl (78.0-98.0); Mean Platelet Volume 9.1 fL (7.4-10.4); Platelet Count 312 10x3/uL (130-400); RBC Distribution Width 12.6 % (11.5-14.5); Red Blood Cell (RBC) Count 4.24 mill/uL (4.70-6.10); White Blood Cell (WBC) Count 10.9 10x3/uL (4.8-10.8)
[2023-03-07 08:10] LABS: Anion Gap 16 mmol/L (10-20); BUN (Urea Nitrogen) 14 mg/dL (8.4-25.7); Calc. Creatinine Clearance 120 mL/min (70-130); Calcium 9.1 mg/dL (7.8-10.44); Carbon Dioxide 22 mmol/L (23-31); Chloride 105 mmol/L (98-107); Estimated GFR 99; Glucose 92 mg/dL (80-115); Potassium 4.4 mmol/L (3.5-5.1); Sodium 139 mmol/L (136-145)
[2023-03-07] MEDS: Aspirin 81 mg Enteric Coated Tablet PO SCH (09:05)
[2023-03-07] MEDS: Amlodipine 10 MG TAB PO SCH (09:05)
[2023-03-07] MEDS: Gabapentin 300 MG CAP PO SCH ×3 (09:05→21:29)
[2023-03-07] MEDS: Atorvastatin Calcium 40 MG TAB PO SCH (09:05)
[2023-03-07] MEDS: Lisinopril 10 MG TAB PO SCH (09:05)
[2023-03-07] MEDS: Clopidogrel Bisulfate 75 MG TAB PO SCH (09:05)
[2023-03-07] MEDS: metroNIDAZOLE 500 MG TAB PO SCH ×3 (09:05→21:29)
[2023-03-07] MEDS: HYDROcodone/Acetaminophen 5/325 mg Tablet PO PRN ×2 (09:15→21:35)
[2023-03-07] MEDS: cefTRIAXone\\ROCEPHIN 1 GM in Sodium Chloride 0.9% 100 ML IVPB SCH (17:51)
[2023-03-08] MEDS: VANCOMYCIN 1.25 GM/250 ML BAG 1.25 GM in Premix Bag 1 BAG IVPB SCH ×3 (06:05→22:59)
[2023-03-08] MEDS: Mometasone 200 MCG/Formoterol 5 MCG 120 PUFF INHALER INH SCH ×2 (06:54→18:56)
[2023-03-08] MEDS: HYDROcodone/Acetaminophen 5/325 mg Tablet PO PRN ×3 (09:59→21:28)
[2023-03-08] MEDS: Atorvastatin Calcium 40 MG TAB PO SCH (10:00)
[2023-03-08] MEDS: Gabapentin 300 MG CAP PO SCH ×3 (10:00→21:25)
[2023-03-08] MEDS: Amlodipine 10 MG TAB PO SCH (10:00)
[2023-03-08] MEDS: Clopidogrel Bisulfate 75 MG TAB PO SCH (10:00)
[2023-03-08] MEDS: Aspirin 81 mg Enteric Coated Tablet PO SCH (10:00)
[2023-03-08] MEDS: metroNIDAZOLE 500 MG TAB PO SCH ×3 (10:00→21:25)
[2023-03-08] MEDS: Lisinopril 10 MG TAB PO SCH (10:00)
[2023-03-08] MEDS: cefTRIAXone\\ROCEPHIN 1 GM in Sodium Chloride 0.9% 100 ML IVPB SCH (18:39)
[2023-03-09] MEDS: VANCOMYCIN 1.25 GM/250 ML BAG 1.25 GM in Premix Bag 1 BAG IVPB SCH ×4 (05:48→23:49)
[2023-03-09] MEDS: HYDROcodone/Acetaminophen 5/325 mg Tablet PO PRN ×5 (05:51→23:48)
[2023-03-09] MEDS: Mometasone 200 MCG/Formoterol 5 MCG 120 PUFF INHALER INH SCH ×2 (06:35→21:45)
[2023-03-09] MEDS: Aspirin 81 mg Enteric Coated Tablet PO SCH (08:30)
[2023-03-09] MEDS: Clopidogrel Bisulfate 75 MG TAB PO SCH (08:30)
[2023-03-09] MEDS: metroNIDAZOLE 500 MG TAB PO SCH ×3 (08:30→21:00)
[2023-03-09] MEDS: Lisinopril 10 MG TAB PO SCH (08:30)
[2023-03-09] MEDS: Gabapentin 300 MG CAP PO SCH ×3 (08:31→21:00)
[2023-03-09] MEDS: Atorvastatin Calcium 40 MG TAB PO SCH (08:31)
[2023-03-09] MEDS: Amlodipine 10 MG TAB PO SCH (18:01)
[2023-03-09] MEDS: cefTRIAXone\\ROCEPHIN 1 GM in Sodium Chloride 0.9% 100 ML IVPB SCH (18:06)
[2023-03-09 22:39] LABS: Vancomycin, Trough 20.8 ug/mL
[2023-03-10] MEDS: HYDROcodone/Acetaminophen 5/325 mg Tablet PO PRN ×4 (06:19→20:42)
[2023-03-10] MEDS: Mometasone 200 MCG/Formoterol 5 MCG 120 PUFF INHALER INH SCH ×2 (06:46→18:55)
[2023-03-10] MEDS: metroNIDAZOLE 500 MG TAB PO SCH ×3 (08:57→20:41)
[2023-03-10] MEDS: Aspirin 81 mg Enteric Coated Tablet PO SCH (08:57)
[2023-03-10] MEDS: VANCOMYCIN 1.25 GM/250 ML BAG 1.25 GM in Premix Bag 1 BAG IVPB SCH ×3 (08:58→22:58)
[2023-03-10] MEDS: Clopidogrel Bisulfate 75 MG TAB PO SCH (08:58)
[2023-03-10] MEDS: Atorvastatin Calcium 40 MG TAB PO SCH (08:58)
[2023-03-10] MEDS: Amlodipine 10 MG TAB PO SCH (08:59)
[2023-03-10] MEDS: Gabapentin 300 MG CAP PO SCH ×3 (08:59→20:41)
[2023-03-10] MEDS: Lisinopril 10 MG TAB PO SCH (08:59)
[2023-03-10] MEDS: cefTRIAXone\\ROCEPHIN 1 GM in Sodium Chloride 0.9% 100 ML IVPB SCH (17:46)
[2023-03-11] MEDS: Mometasone 200 MCG/Formoterol 5 MCG 120 PUFF INHALER INH SCH ×2 (06:44→18:46)
[2023-03-11] MEDS: Aspirin 81 mg Enteric Coated Tablet PO SCH (08:21)
[2023-03-11] MEDS: Lisinopril 10 MG TAB PO SCH (08:21)
[2023-03-11] MEDS: Clopidogrel Bisulfate 75 MG TAB PO SCH (08:21)
[2023-03-11] MEDS: Gabapentin 300 MG CAP PO SCH ×3 (08:22→19:53)
[2023-03-11] MEDS: Atorvastatin Calcium 40 MG TAB PO SCH (08:22)
[2023-03-11] MEDS: Amlodipine 10 MG TAB PO SCH (08:22)
[2023-03-11] MEDS: metroNIDAZOLE 500 MG TAB PO SCH ×3 (08:22→19:53)
[2023-03-11] MEDS: VANCOMYCIN 1.25 GM/250 ML BAG 1.25 GM in Premix Bag 1 BAG IVPB SCH ×3 (08:23→23:35)
[2023-03-11] MEDS: HYDROcodone/Acetaminophen 5/325 mg Tablet PO PRN ×4 (08:29→23:35)
[2023-03-11 09:55] LABS: Thyroid Stimulating Hormone 0.5695 uIU/mL (0.35-4.94)
[2023-03-11 10:10] LABS: Free T4 (Free Thyroxine) 1.09 ng/dL (0.70-1.48)
[2023-03-11] MEDS: cefTRIAXone\\ROCEPHIN 1 GM in Sodium Chloride 0.9% 100 ML IVPB SCH (17:52)
[2023-03-11] MEDS: Acetaminophen 500 MG TAB PO PRN (23:41)
[2023-03-12] MEDS: Mometasone 200 MCG/Formoterol 5 MCG 120 PUFF INHALER INH SCH ×2 (07:16→18:03)
[2023-03-12] MEDS: VANCOMYCIN 1.25 GM/250 ML BAG 1.25 GM in Premix Bag 1 BAG IVPB SCH (09:51)
[2023-03-12] MEDS: HYDROcodone/Acetaminophen 5/325 mg Tablet PO PRN ×3 (09:52→21:48)
[2023-03-12] MEDS: Aspirin 81 mg Enteric Coated Tablet PO SCH (09:52)
[2023-03-12] MEDS: metroNIDAZOLE 500 MG TAB PO SCH ×3 (09:52→21:48)
[2023-03-12] MEDS: Amlodipine 10 MG TAB PO SCH (09:52)
[2023-03-12] MEDS: Clopidogrel Bisulfate 75 MG TAB PO SCH (09:52)
[2023-03-12] MEDS: Lisinopril 10 MG TAB PO SCH (09:52)
[2023-03-12] MEDS: Gabapentin 300 MG CAP PO SCH ×3 (09:52→21:48)
[2023-03-12] MEDS: Atorvastatin Calcium 40 MG TAB PO SCH (09:52)
[2023-03-12] MEDS: Acetaminophen 500 MG TAB PO PRN ×2 (11:57→18:30)
[2023-03-12 11:58] LABS: #Basophils 0.1 thou/uL (0.0-0.2); #Eosinphils 0.3 thou/uL (0.0-0.7); #Monocytes 1.1 thou/uL (0.11-0.59); #Neutrophils 7.4 thou/uL (1.40-6.50); %Basophils 0.5 % (0.0-1.0); %Eosinophils 3.1 % (0.0-10.0); %Lymphocytes 13.9 % (21.0-51.0); %Neutrophils 71.1 % (42.0-75.0); Hematocrit 39.5 % (42.0-52.0); Hemoglobin 13.2 g/dL (14.0-18.0); Mean Corpuscular HGB CONC 33.4 g/dL (32.0-36.0); Mean Corpuscular Hemoglobin 31.1 pg (27.0-31.0); Mean Corpuscular Volume 92.9 fl (78.0-98.0); Mean Platelet Volume 9.3 fL (7.4-10.4); Platelet Count 415 10x3/uL (130-400); RBC Distribution Width 12.5 % (11.5-14.5); Red Blood Cell (RBC) Count 4.25 mill/uL (4.70-6.10); White Blood Cell (WBC) Count 10.4 10x3/uL (4.8-10.8)
[2023-03-12 12:22] LABS: ALT (SGPT) 25 U/L (8-55); AST (SGOT) 19 U/L (5-34); Albumin 3.8 g/dL (3.4-4.8); Alkaline Phosphatase 93 U/L (40-110); Anion Gap 13 mmol/L (10-20); BUN (Urea Nitrogen) 15 mg/dL (8.4-25.7); Bilirubin, Total 0.3 mg/dL (0.2-1.2); Calc. Creatinine Clearance 125 mL/min (70-130); Calcium 9.2 mg/dL (7.8-10.44); Carbon Dioxide 24 mmol/L (23-31); Chloride 104 mmol/L (98-107); Estimated GFR 100; Globulin 3.4 g/dL (2.4-3.5); Glucose 99 mg/dL (80-115); Potassium 3.6 mmol/L (3.5-5.1); Protein, Total 7.2 g/dL (5.8-8.1); Sodium 137 mmol/L (136-145)
[2023-03-12] MEDS: Vancomycin 1 GM in Premix Bag 1 BAG IVPB SCH ×2 (16:03→23:32)
[2023-03-12] MEDS: cefTRIAXone\\ROCEPHIN 1 GM in Sodium Chloride 0.9% 100 ML IVPB SCH (17:15)
[2023-03-13] MEDS: Acetaminophen 500 MG TAB PO PRN (00:37)
[2023-03-13] MEDS: HYDROcodone/Acetaminophen 5/325 mg Tablet PO PRN ×3 (05:54→16:10)
[2023-03-13] MEDS: Mometasone 200 MCG/Formoterol 5 MCG 120 PUFF INHALER INH SCH (06:54)
[2023-03-13] MEDS: Clopidogrel Bisulfate 75 MG TAB PO SCH (09:28)
[2023-03-13] MEDS: Aspirin 81 mg Enteric Coated Tablet PO SCH (09:28)
[2023-03-13] MEDS: metroNIDAZOLE 500 MG TAB PO SCH ×2 (09:28→16:10)
[2023-03-13] MEDS: Lisinopril 10 MG TAB PO SCH (09:29)
[2023-03-13] MEDS: Atorvastatin Calcium 40 MG TAB PO SCH (09:29)
[2023-03-13] MEDS: Gabapentin 300 MG CAP PO SCH ×2 (09:29→16:10)
[2023-03-13] MEDS: Amlodipine 10 MG TAB PO SCH (09:30)
[2023-03-13 10:13] LABS: Vancomycin, Trough 16.1 ug/mL
[2023-03-13] MEDS: Vancomycin 1 GM in Premix Bag 1 BAG IVPB SCH (11:32)
[2023-03-13 15:49] VITALS: BP 133/77; TEMP 97.9
[2023-03-13] MEDS ORDERED: Vancomycin 1 GM in Premix Bag 1 BAG IVPB SCH (20:00)
== END 2023-03-13 18:05 | disposition home health service (06) | DRG 501 ==
LOC: ERS 16:58 → OBSVTOIN 18:59 → SURG A 18:59
PROVIDERS: ADMIT Internal Medicine; ATTEND Internal Medicine
PROC: 0Y6Q0Z1 Detachment at Left 1st Toe, High, Open Approach (ICD-10-PCS; principal; 2023-02-27)
PROC: 0JQR0ZZ Repair Left Foot Subcutaneous Tissue and Fascia, Open Approach (ICD-10-PCS; 2023-02-27)
PROC: 0QBN0ZZ Excision of Right Metatarsal, Open Approach (ICD-10-PCS; 2023-02-27)
PROC: 02HV33Z Insertion of Infusion Device into Superior Vena Cava, Percutaneous Approach (ICD-10-PCS; 2023-03-03)
PROC: B5181ZA Fluoroscopy of Superior Vena Cava using Low Osmolar Contrast, Guidance (ICD-10-PCS; 2023-03-03)
PROC: B548ZZA Ultrasonography of Superior Vena Cava, Guidance (ICD-10-PCS; 2023-03-03)
DX: M86.8X8 Other osteomyelitis, other site (principal); I96 Gangrene, not elsewhere classified; L03.115 Cellulitis of right lower limb; M84.474A Pathological fracture, right foot, initial encounter for fracture; T87.43 Infection of amputation stump, right lower extremity; E78.00 Pure hypercholesterolemia, unspecified; I10 Essential (primary) hypertension; G62.9 Polyneuropathy, unspecified; J44.9 Chronic obstructive pulmonary disease, unspecified; F17.210 Nicotine dependence, cigarettes, uncomplicated; L97.529 Non-pressure chronic ulcer of other part of left foot with unspecified severity; B95.61 Methicillin susceptible Staphylococcus aureus infection as the cause of diseases classified elsewhere; M19.90 Unspecified osteoarthritis, unspecified site; B96.1 Klebsiella pneumoniae [K. pneumoniae] as the cause of diseases classified elsewhere; B95.62 Methicillin resistant Staphylococcus aureus infection as the cause of diseases classified elsewhere; Z98.890 Other specified postprocedural states; Z90.49 Acquired absence of other specified parts of digestive tract; Z88.0 Allergy status to penicillin; Z88.8 Allergy status to other drugs, medicaments and biological substances; Z79.899 Other long term (current) drug therapy; Z79.82 Long term (current) use of aspirin; Y83.8 Other surgical procedures as the cause of abnormal reaction of the patient, or of later complication, without mention of misadventure at the time of the procedure
CPT/HCPCS: 36415; 36416; 36569; 71275; 80048; 80053; 80202; 82565; 83605; 84439; 84443; 84481; 84484; 85025; 85610; 85730; 86140; 87040; 87070; 87077; 87186; 87205; 88305; 93005; 93010; 94760; 96365; 96366; 96375; 97139; C1751; J0696; J1100; J1200; J2270; J2405; J2543; J2704; J3370; J3370-JW; J3490; J7050; Q9967; S0020